=== PATIENT | female | born 1935 | race African-American/Black ===

== ENCOUNTER 2018-09-04 10:41 | Inpatient (IN) | payer MEDICARE, MEDICAID ==
[~2018-09-04] VITALS: Ht 162.6 cm; Wt 87.1 kg
[~2018-09-04 10:41] MED LIST: AMLO10TA80 PO; CLOT14.2 TP; D-ME1TAB32 PO; DIGO125T82 PO; GABA-531 PO; LEVO112T7 PO; [UNRECOGNIZED DRUG - CODE] PO
[2018-09-04] MEDS ORDERED: FAMOTIDINE 20MG/2ML VIAL IV STA (11:34)
[2018-09-04] MEDS ORDERED: MORPHINE SULFATE 4 MG/ML CPJ (NOT FOR IM USE) IV STA (11:34)
[2018-09-04 12:08] LABS: BASOPHILS % 0.3 % (0.0-2.0); EOSINOPHILS % 0.6 % (0.0-5.0); HEMATOCRIT. 43.6 % (36.0-48.0); HEMOGLOBIN. 14.3 g/dL (12.0-16.0); LYMPHOCYTES % 20.6 % (20.0-50.0); MEAN CORPUSCULAR HEMOGLOBIN 31.9 pg (28.0-32.0); MEAN PLATELET VOLUME 10.2 fl (7.4-10.4); MONOCYTES % 13.6 % (2.0-8.0); NEUTROPHILS % 64.9 % (40.0-76.0); PLATELET 203 x1000/uL (130-400); RED BLOOD CELL COUNT 4.49 mill/uL (4.2-5.4); RED CELL DISTRIBUTION WIDTH 14.5 % (11.6-14.6)
[2018-09-04 12:13] LABS: CHLORIDE 103 mEq/L (98-107)
[2018-09-04 12:16] LABS: INR 1.1; PROTHROMBIN TIME 10.8 sec (9.1-11.1)
[2018-09-04] MEDS ORDERED: LEVOFLOXACIN 750MG PREMIX 150 ML IV ONE (14:30)
[2018-09-04] MEDS ORDERED: DIPHENHYDRAMINE 50MG/ML VIAL IV PRN (15:30)
[2018-09-04] MEDS ORDERED: MAGNESIUM/ALUMINUM HYDROXIDE/SIMETHICONE 30ML UDC PO PRN (15:30)
[2018-09-04] MEDS ORDERED: ACETAMINOPHEN 325MG TABLET PO PRN (15:30)
[2018-09-04] MEDS ORDERED: ZOLPIDEM TARTRATE 5MG TABLET PO PRN (15:30)
[2018-09-04] MEDS ORDERED: LORAZEPAM 0.5MG TABLET PO PRN (15:30)
[2018-09-04] MEDS ORDERED: DOCUSATE SODIUM 100MG CAPSULE PO PRN (15:30)
[2018-09-04] MEDS ORDERED: GUAIFENESIN 200MG/10ML SUGAR FREE UDC PO PRN (15:30)
[2018-09-04] MEDS ORDERED: CLONIDINE 0.1MG TABLET PO PRN (15:30)
[2018-09-04] MEDS ORDERED: NITROGLYCERIN 0.4MG TABLET SL SL PRN (15:30)
[2018-09-04] MEDS ORDERED: IPRATROPIUM/ALBUTEROL 0.5-3(2.5)MG/3ML NEB INH PRN (15:30)
[2018-09-04 16:13] LABS: LDL CHOLESTEROL 100 mg/dL (5-100)
[2018-09-04 16:16] LABS: HDL CHOLESTEROL 55 mg/dL (40-59)
[2018-09-04 16:21] LABS: CLARITY URINE CLOUDY (CLEAR); COLOR URINE DARK YELLOW (YELLOW); KETONES URINE 1+ (NEGATIVE); LEUKOCYTE ESTERASE URINE 1+ (NEGATIVE); NITRITE URINE POSITIVE (NEGATIVE); OCCULT BLOOD URINE TRACE (NEGATIVE); PROTEIN URINE 1+ (NEGATIVE); SPECIFIC GRAVITY URINE 1.028 (1.005-1.030)
[2018-09-04 16:21] LABS: T4 FREE 1.45 ng/dL (0.76-1.46)
[2018-09-04 16:39] VITALS: BP 140/71
[2018-09-04 16:40] LABS: DIGOXIN < 0.1 ng/mL (0.9-2.0)
[2018-09-04] MEDS ORDERED: HYDROCODONE/ACETAMINOPHEN 5/325MG TABLET PO PRN (17:15)
[2018-09-04] MEDS ORDERED: MORPHINE SULFATE 4 MG/ML CPJ (NOT FOR IM USE) IV PRN (17:15)
[2018-09-04] MEDS ORDERED: TRAMADOL 50MG TABLET PO PRN (17:15)
[2018-09-04] MEDS: ONDANSETRON HCL 4MG/2ML INJ IV PRN (17:33)
[2018-09-04] MEDS ORDERED: APIX5TAB PO (17:50)
[2018-09-04 18:00] VITALS: BP 133/33
[2018-09-04] MEDS: FUROSEMIDE 40MG/4ML VIAL IVP SCH (18:01)
[2018-09-04] MEDS: DILTIAZEM HCL 60MG TABLET PO SCH (18:01)
[2018-09-04 18:21] VITALS: BP 140/71
[2018-09-04 20:00] VITALS: BP 97/57
[2018-09-04] MEDS ORDERED: CEFTRIAXONE 1 G PREMIX 50 ML IV SCH (20:00)
[2018-09-04] MEDS: GUAIFENESIN/DM 600MG/30MG ER TAB 12HR PO SCH (20:28)
[2018-09-04] MEDS ORDERED: NA PHOS,M-B/NA PHOS,DI-BA ENEMA 118ML PR PRN (21:00)
[2018-09-04] MEDS ORDERED: AZITHROMYCIN 500 MG in DEXT 5% WATER 250 ML IV SCH (21:00)
[2018-09-04] MEDS: FAMOTIDINE 20MG TABLET PO SCH (21:44)
[2018-09-04] MEDS: ASCORBIC ACID 500 MG TABLET PO SCH (21:44)
[2018-09-04] MEDS: ENOXAPARIN 30MG/0.3ML SYR SUBCUT SCH (21:45)
[2018-09-04 22:00] VITALS: BP 105/58
[2018-09-05] VITALS (17 sets, daily range): BP systolic 90–137; BP diastolic 45–71
[2018-09-05] MEDS: DILTIAZEM HCL 60MG TABLET PO SCH ×3 (00:06→06:43)
[2018-09-05 01:00] LABS: CREATINE KINASE 39 IU/L (26-192)
[2018-09-05 01:01] LABS: CREATINE KINASE MB FRACTION < 1.0 ng/mL (0.5-3.6)
[2018-09-05] MEDS: IPRATROPIUM BROMIDE (0.02%) 0.5MG/2.5ML NEB HHN SCH ×3 (05:15→21:46)
[2018-09-05] MEDS: LEVOTHYROXINE SODIUM 112MCG TABLET PO SCH (06:43)
[2018-09-05 08:33] LABS: BASOPHILS % 0.3 % (0.0-2.0); EOSINOPHILS % 0.4 % (0.0-5.0); HEMATOCRIT. 40.7 % (36.0-48.0); HEMOGLOBIN. 13.4 g/dL (12.0-16.0); LYMPHOCYTES % 18.4 % (20.0-50.0); MEAN CORPUSCULAR VOLUME 96.9 fL (81.0-99.0); MEAN PLATELET VOLUME 10.6 fl (7.4-10.4); MONOCYTES % 12.7 % (2.0-8.0); NEUTROPHILS % 68.2 % (40.0-76.0); PLATELET 200 x1000/uL (130-400); RED CELL DISTRIBUTION WIDTH 14.5 % (11.6-14.6)
[2018-09-05] MEDS: ONDANSETRON HCL 4MG/2ML INJ IV PRN (08:37)
[2018-09-05] MEDS: ENOXAPARIN 30MG/0.3ML SYR SUBCUT SCH (08:42)
[2018-09-05] MEDS: FUROSEMIDE 40MG/4ML VIAL IVP SCH (08:43)
[2018-09-05] MEDS: ASCORBIC ACID 500 MG TABLET PO SCH ×2 (08:45→21:31)
[2018-09-05] MEDS: ZINC SULFATE 220 MG ( 50 ) CAPSULE PO SCH (08:45)
[2018-09-05] MEDS: FAMOTIDINE 20MG TABLET PO SCH ×2 (08:45→21:31)
[2018-09-05] MEDS: POTASSIUM CHLORIDE 20MEQ TABLET SR PO SCH (08:45)
[2018-09-05 08:55] LABS: CHLORIDE 100 mEq/L (98-107)
[2018-09-05] MEDS ORDERED: ASPIRIN 325MG EC TABLET PO SCH (09:00)
[2018-09-05] MEDS: GUAIFENESIN/DM 600MG/30MG ER TAB 12HR PO SCH ×2 (09:00→20:10)
[2018-09-05 09:11] LABS: CREATINE KINASE 48 IU/L (26-192)
[2018-09-05 09:19] LABS: CREATINE KINASE MB FRACTION < 1.0 ng/mL (0.5-3.6)
[2018-09-05] MEDS: DILTIAZEM HCL 30MG TABLET PO SCH (17:30)
[2018-09-05] MEDS: CEFTRIAXONE 1 G PREMIX 50 ML IV SCH (20:09)
[2018-09-05] MEDS: AZITHROMYCIN 500 MG in DEXT 5% WATER 250 ML IV SCH (21:31)
[2018-09-06] VITALS (15 sets, daily range): BP systolic 97–132; BP diastolic 41–89
[2018-09-06] MEDS: IPRATROPIUM BROMIDE (0.02%) 0.5MG/2.5ML NEB HHN SCH ×4 (03:55→22:08)
[2018-09-06] MEDS: DILTIAZEM HCL 30MG TABLET PO SCH ×5 (06:31→21:06)
[2018-09-06 06:51] LABS: CHLORIDE 101 mEq/L (98-107)
[2018-09-06 06:58] LABS: BASOPHILS % 0.2 % (0.0-2.0); EOSINOPHILS % 1.5 % (0.0-5.0); HEMATOCRIT. 37.7 % (36.0-48.0); HEMOGLOBIN. 12.4 g/dL (12.0-16.0); LYMPHOCYTES % 21.1 % (20.0-50.0); MEAN CORPUSCULAR HEMOGLOBIN 31.6 pg (28.0-32.0); MEAN CORPUSCULAR VOLUME 96.4 fL (81.0-99.0); MEAN PLATELET VOLUME 10.2 fl (7.4-10.4); MONOCYTES % 14.8 % (2.0-8.0); NEUTROPHILS % 62.4 % (40.0-76.0); PLATELET 181 x1000/uL (130-400); RED BLOOD CELL COUNT 3.91 mill/uL (4.2-5.4); RED CELL DISTRIBUTION WIDTH 14.3 % (11.6-14.6)
[2018-09-06] MEDS: ZINC SULFATE 220 MG ( 50 ) CAPSULE PO SCH (09:11)
[2018-09-06] MEDS: ASCORBIC ACID 500 MG TABLET PO SCH ×2 (09:13→20:48)
[2018-09-06] MEDS: FAMOTIDINE 20MG TABLET PO SCH ×2 (09:13→20:48)
[2018-09-06] MEDS: GUAIFENESIN/DM 600MG/30MG ER TAB 12HR PO SCH ×2 (09:13→20:48)
[2018-09-06] MEDS: POTASSIUM CHLORIDE 20MEQ TABLET SR PO SCH (09:13)
[2018-09-06] MEDS: LEVOTHYROXINE SODIUM 112MCG TABLET PO SCH (09:13)
[2018-09-06] MEDS: FUROSEMIDE 40MG/4ML VIAL IVP SCH (09:24)
[2018-09-06 10:05] LABS: INR 1.1; PARTIAL THROMBOPLASTIN TIME 31.2 sec (23.4-31.0); PROTHROMBIN TIME 10.8 sec (9.1-11.1)
[2018-09-06] MEDS ORDERED: POTASSIUM CHLORIDE 20MEQ/PACKET PO NR (12:45)
[2018-09-06] MEDS: CEFTRIAXONE 1 G PREMIX 50 ML IV SCH (20:48)
[2018-09-06] MEDS: AZITHROMYCIN 500 MG in DEXT 5% WATER 250 ML IV SCH (21:57)
[2018-09-07] VITALS (10 sets, daily range): BP systolic 94–132; BP diastolic 57–86
[2018-09-07] MEDS: IPRATROPIUM BROMIDE (0.02%) 0.5MG/2.5ML NEB HHN SCH ×3 (01:07→13:03)
[2018-09-07] MEDS: DILTIAZEM HCL 30MG TABLET PO SCH (06:20)
[2018-09-07] MEDS: LEVOTHYROXINE SODIUM 112MCG TABLET PO SCH (06:20)
[2018-09-07 07:31] LABS: CHLORIDE 99 mEq/L (98-107)
[2018-09-07 07:32] LABS: BASOPHILS % 0.2 % (0.0-2.0); EOSINOPHILS % 1.2 % (0.0-5.0); HEMATOCRIT. 38.3 % (36.0-48.0); HEMOGLOBIN. 12.9 g/dL (12.0-16.0); LYMPHOCYTES % 24.6 % (20.0-50.0); MEAN CORPUSCULAR HEMOGLOBIN 32.4 pg (28.0-32.0); MEAN PLATELET VOLUME 10.1 fl (7.4-10.4); MONOCYTES % 12.6 % (2.0-8.0); NEUTROPHILS % 61.4 % (40.0-76.0); PLATELET 188 x1000/uL (130-400); RED BLOOD CELL COUNT 3.99 mill/uL (4.2-5.4); RED CELL DISTRIBUTION WIDTH 14.3 % (11.6-14.6)
[2018-09-07] MEDS: FUROSEMIDE 40MG/4ML VIAL IVP SCH (09:18)
[2018-09-07] MEDS: ZINC SULFATE 220 MG ( 50 ) CAPSULE PO SCH (09:19)
[2018-09-07] MEDS: FAMOTIDINE 20MG TABLET PO SCH (09:19)
[2018-09-07] MEDS: GUAIFENESIN/DM 600MG/30MG ER TAB 12HR PO SCH (09:19)
[2018-09-07] MEDS: POTASSIUM CHLORIDE 20MEQ TABLET SR PO SCH (09:19)
[2018-09-07] MEDS: ASCORBIC ACID 500 MG TABLET PO SCH (09:19)
[2018-09-14] MEDS ORDERED: ATOR10TA MT (03:03)
== END 2018-09-07 16:39 | disposition home or self-care (01) | DRG 871 ==
LOC: ER 13:37 → EDBEDREQ 14:09 → 3WST 14:59 → EDBEDREQ 15:06 → SUPCPDRO 15:24 → ENRESERV 16:04 → CANBEDREQ 16:15
PROVIDERS: ADMIT Internal Medicine; ATTEND Internal Medicine
PROC: 0W993ZZ Drainage of Right Pleural Cavity, Percutaneous Approach (ICD-10-PCS; principal; 2018-09-06)
DX: A41.9 Sepsis, unspecified organism (principal); J18.9 Pneumonia, unspecified organism; J96.00 Acute respiratory failure, unspecified whether with hypoxia or hypercapnia; E44.0 Moderate protein-calorie malnutrition; I13.0 Hypertensive heart and chronic kidney disease with heart failure and stage 1 through stage 4 chronic kidney disease, or unspecified chronic kidney disease; I48.1 Persistent atrial fibrillation; I50.30 Unspecified diastolic (congestive) heart failure; J98.11 Atelectasis; N39.0 Urinary tract infection, site not specified; E87.6 Hypokalemia; Z96.659 Presence of unspecified artificial knee joint; E11.42 Type 2 diabetes mellitus with diabetic polyneuropathy; I95.9 Hypotension, unspecified; K46.9 Unspecified abdominal hernia without obstruction or gangrene; R00.1 Bradycardia, unspecified; E03.9 Hypothyroidism, unspecified; E11.22 Type 2 diabetes mellitus with diabetic chronic kidney disease; E66.9 Obesity, unspecified; K57.90 Diverticulosis of intestine, part unspecified, without perforation or abscess without bleeding; N18.9 Chronic kidney disease, unspecified; Z79.01 Long term (current) use of anticoagulants; I25.2 Old myocardial infarction; Z87.11 Personal history of peptic ulcer disease; Z90.49 Acquired absence of other specified parts of digestive tract; Z91.14 Patient's other noncompliance with medication regimen; Z68.33 Body mass index [BMI] 33.0-33.9, adult; Z88.0 Allergy status to penicillin
CPT/HCPCS: 32555; 36415; 71045; 71250; 74176; 80048; 80061; 80162; 82040; 82550; 82553; 82962; 83036; 83605; 83615; 83735; 83880; 84439; 84443; 84484; 88108; 88312; 93005; 93306; 93970; 94640; 96374; 96375; 97162; 97166; 99285; J0456; J0696; J1650; J1940; J1956; J2270; J2405; J3490; J7050; J7060; J7620; A4315

== ENCOUNTER 2018-12-06 18:04 | Inpatient (IN) | payer MEDICARE, MEDICAID ==
[~2018-12-06] VITALS: Ht 162.6 cm; Wt 89.1 kg
[~2018-12-06 18:04] MED LIST changes: -AMLO10TA80 PO; +APIX5TAB PO; +ATOR10TA MT
[2018-12-06] MEDS ORDERED: SODIUM CHLORIDE 0.9% 1,000 ML IV ONE (18:22)
[2018-12-06 19:22] LABS: BASOPHILS % 0.5 % (0.0-2.0); HEMATOCRIT. 32.1 % (36.0-48.0); HEMOGLOBIN. 10.6 g/dL (12.0-16.0); LYMPHOCYTES % 26.3 % (20.0-50.0); MEAN CORPUSCULAR HEMOGLOBIN 30.3 pg (28.0-32.0); MEAN CORPUSCULAR VOLUME 91.8 fL (81.0-99.0); MEAN PLATELET VOLUME 10.7 fl (7.4-10.4); MONOCYTES % 10.3 % (2.0-8.0); NEUTROPHILS % 61.9 % (40.0-76.0); PLATELET 244 x1000/uL (130-400); RED CELL DISTRIBUTION WIDTH 16.7 % (11.6-14.6)
[2018-12-06 19:28] LABS: INR 1.6; PROTHROMBIN TIME 15.6 sec (9.1-11.1)
[2018-12-06 19:29] LABS: CHLORIDE 101 mEq/L (98-107)
[2018-12-06] MEDS ORDERED: MEROPENEM 1,000 MG in SODIUM CHLORIDE 0.9% 100 ML IV ONE (19:45)
[2018-12-06] MEDS ORDERED: VANCOMYCIN 1 G PREMIX 200 ML IV ONE (19:45)
[2018-12-06] MEDS ORDERED: SODIUM CHLORIDE 0.9% 1000ML BAG (SEPSIS BOLUS) IV ONE (19:45)
[2018-12-06 20:00] VITALS: BP 112/64
[2018-12-06] MEDS ORDERED: NITROGLYCERIN 0.4MG TABLET SL SL PRN (21:00)
[2018-12-06] MEDS ORDERED: ZOLPIDEM TARTRATE 5MG TABLET PO PRN (21:00)
[2018-12-06] MEDS ORDERED: APIXABAN 2.5 MG TABLET PO SCH (21:00)
[2018-12-06] MEDS ORDERED: DOCUSATE SODIUM 100MG CAPSULE PO PRN (21:15)
[2018-12-06] MEDS ORDERED: CLONIDINE 0.1MG TABLET PO PRN (21:15)
[2018-12-06] MEDS ORDERED: ONDANSETRON HCL 4MG/2ML INJ IV PRN (21:15)
[2018-12-06] MEDS ORDERED: MAGNESIUM/ALUMINUM HYDROXIDE/SIMETHICONE 30ML UDC PO PRN (21:15)
[2018-12-06] MEDS ORDERED: IPRATROPIUM/ALBUTEROL 0.5-3(2.5)MG/3ML NEB INH PRN (21:15)
[2018-12-06] MEDS ORDERED: GUAIFENESIN 200MG/10ML SUGAR FREE UDC PO PRN (21:15)
[2018-12-06 21:18] LABS: ETHANOL BLOOD < 10 mg/dL
[2018-12-06 21:21] LABS: LDL CHOLESTEROL 66 mg/dL (5-100)
[2018-12-06 21:22] LABS: HDL CHOLESTEROL 27 mg/dL (40-59)
[2018-12-06 21:26] LABS: T4 FREE 2.12 ng/dL (0.76-1.46)
[2018-12-06 21:36] LABS: DIGOXIN 0.1 ng/mL (0.9-2.0)
[2018-12-06 22:00] VITALS: BP 115/59
[2018-12-06 22:00] LABS: CREATINE KINASE MB FRACTION 1.7 ng/mL (0.5-3.6)
[2018-12-06 22:13] LABS: CLARITY URINE CLEAR (CLEAR); COLOR URINE YELLOW (YELLOW); KETONES URINE TRACE (NEGATIVE); LEUKOCYTE ESTERASE URINE NEGATIVE (NEGATIVE); NITRITE URINE NEGATIVE (NEGATIVE); OCCULT BLOOD URINE NEGATIVE (NEGATIVE); PH URINE 5.5 (4.5-8.0); PROTEIN URINE NEGATIVE (NEGATIVE); SPECIFIC GRAVITY URINE 1.015 (1.005-1.030)
[2018-12-07] VITALS (14 sets, daily range): BP systolic 75–110; BP diastolic 37–68
[2018-12-07] MEDS ORDERED: SODIUM CHLORIDE 0.9% 500 ML IV SCH
[2018-12-07] MEDS ORDERED: ALBUMIN HUMAN 25GM/100ML (25%) IV SCH
[2018-12-07] MEDS: TRAMADOL 50MG TABLET PO PRN (00:24)
[2018-12-07] MEDS ORDERED: SODIUM CHLORIDE 0.9% 1,000 ML IV ONE (03:38)
[2018-12-07 08:07] LABS: CREATINE KINASE MB FRACTION 1.9 ng/mL (0.5-3.6)
[2018-12-07] MEDS ORDERED: POTASSIUM CHLORIDE 20MEQ TABLET SR PO NR (10:00)
[2018-12-07] MEDS: ASPIRIN 325MG EC TABLET PO SCH (11:39)
[2018-12-07] MEDS: ASCORBIC ACID 500 MG TABLET PO SCH ×2 (11:39→21:12)
[2018-12-07] MEDS: APIXABAN 5 MG TABLET PO SCH ×2 (11:39→18:17)
[2018-12-07] MEDS: ZINC SULFATE 220 MG ( 50 ) CAPSULE PO SCH (11:39)
[2018-12-07] MEDS: FAMOTIDINE 20MG TABLET PO SCH (11:40)
[2018-12-07] MEDS ORDERED: LEVOFLOXACIN 500MG PREMIX 100 ML IV SCH (12:00)
[2018-12-07] MEDS: CEFTRIAXONE 1 G PREMIX 50 ML IV SCH (12:08)
[2018-12-07] MEDS: SODIUM CHLORIDE 0.9% 1,000 ML IV SCH (12:08)
[2018-12-07] MEDS: ALBUMIN HUMAN 25GM/100ML (25%) IV SCH ×2 (16:07→21:12)
[2018-12-07] MEDS: DIGOXIN 125MCG TABLET PO SCH (18:18)
[2018-12-07] MEDS: ATORVASTATIN CALCIUM 10MG TABLET PO SCH (21:12)
[2018-12-08] VITALS (14 sets, daily range): BP systolic 84–128; BP diastolic 43–67
[2018-12-08] MEDS: SODIUM CHLORIDE 0.9% 1,000 ML IV SCH ×2 (01:05→05:53)
[2018-12-08] MEDS: ALBUMIN HUMAN 25GM/100ML (25%) IV SCH (05:53)
[2018-12-08 08:26] LABS: BASOPHILS % 0.3 % (0.0-2.0); EOSINOPHILS % 0.9 % (0.0-5.0); HEMATOCRIT. 26.3 % (36.0-48.0); HEMOGLOBIN. 8.6 g/dL (12.0-16.0); LYMPHOCYTES % 23.3 % (20.0-50.0); MEAN CORPUSCULAR HEMOGLOBIN 30.2 pg (28.0-32.0); MEAN CORPUSCULAR VOLUME 92.1 fL (81.0-99.0); MEAN PLATELET VOLUME 10.8 fl (7.4-10.4); MONOCYTES % 14.9 % (2.0-8.0); NEUTROPHILS % 60.6 % (40.0-76.0); PLATELET 148 x1000/uL (130-400); RED BLOOD CELL COUNT 2.86 mill/uL (4.2-5.4); RED CELL DISTRIBUTION WIDTH 16.8 % (11.6-14.6)
[2018-12-08 08:28] LABS: CHLORIDE 108 mEq/L (98-107)
[2018-12-08 08:37] LABS: CREATINE KINASE MB FRACTION 1.7 ng/mL (0.5-3.6)
[2018-12-08 08:38] LABS: HDL CHOLESTEROL 20 mg/dL (40-59)
[2018-12-08 08:41] LABS: LDL CHOLESTEROL 40 mg/dL (5-100)
[2018-12-08 08:43] LABS: CREATINE KINASE 902 IU/L (26-192)
[2018-12-08 08:57] LABS: DIGOXIN 0.2 ng/mL (0.9-2.0)
[2018-12-08] MEDS: APIXABAN 5 MG TABLET PO SCH (09:00)
[2018-12-08] MEDS: ZINC SULFATE 220 MG ( 50 ) CAPSULE PO SCH (09:00)
[2018-12-08] MEDS: ASCORBIC ACID 500 MG TABLET PO SCH ×2 (09:00→21:53)
[2018-12-08] MEDS: FAMOTIDINE 20MG TABLET PO SCH (09:00)
[2018-12-08] MEDS: ASPIRIN 325MG EC TABLET PO SCH (09:00)
[2018-12-08 09:16] LABS: BG BASE EXCESS -5.5 mmol/L (-2.0-2.0); BG CARBOXYHEMOGLOBIN 0.2 % (0.5-1.5); BG DEOXYHEMOGLOBIN 6.1 % (0.0-5.0); BG FRACTION INSPIRED OXYGEN 44; BG HCO3 ACT 19.2 mmol/L (22.0-26.0); BG METHEMOGLOBIN 0.3 % (0.0-1.5); BG OXYGEN SATURATION 93.9 % (92.0-98.5); BG OXYHEMOGLOBIN 93.4 % (94.0-97.0); BG PCO2 34.1 mmHg (35.0-45.0); BG PH 7.369 (7.350-7.450); BG PO2 73.2 mmHg (75.0-100.0); BG SAMPLE SITE RIGHT BRACHIAL; BG TOTAL HEMOGLOBIN 8.5 g/dL (12.0-18.0); BG VENT MODE NASAL CANNULA
[2018-12-08] MEDS ORDERED: FUROSEMIDE 20MG/2ML VIAL IVP NR ×2 (09:45→13:00)
[2018-12-08] MEDS ORDERED: MAGNESIUM 4 G PREMIX 100 ML IV NR (10:30)
[2018-12-08] MEDS: ENOXAPARIN 80MG/0.8ML SYR SUBCUT SCH ×2 (11:32→21:53)
[2018-12-08] MEDS ORDERED: KCL 20MEQ/100ML PREMIX 100 ML IV NR (12:15)
[2018-12-08] MEDS: LEVOFLOXACIN 250MG PREMIX 50 ML IV SCH (13:18)
[2018-12-08] MEDS: CEFTRIAXONE 1 G PREMIX 50 ML IV SCH (14:27)
[2018-12-08] MEDS: IPRATROPIUM/ALBUTEROL 0.5-3(2.5)MG/3ML NEB HHN SCH ×2 (14:40→20:30)
[2018-12-08] MEDS: DIGOXIN 125MCG TABLET PO SCH (17:23)
[2018-12-08] MEDS: ATORVASTATIN CALCIUM 10MG TABLET PO SCH (21:53)
[2018-12-09] VITALS (13 sets, daily range): BP systolic 91–119; BP diastolic 49–64
[2018-12-09] MEDS: IPRATROPIUM/ALBUTEROL 0.5-3(2.5)MG/3ML NEB HHN SCH ×4 (00:20→21:18)
[2018-12-09] MEDS: TRAMADOL 50MG TABLET PO PRN ×3 (03:00→20:34)
[2018-12-09 06:51] LABS: CHLORIDE 105 mEq/L (98-107)
[2018-12-09 06:53] LABS: HEMATOCRIT. 25.9 % (36.0-48.0); HEMOGLOBIN. 8.6 g/dL (12.0-16.0); MEAN CORPUSCULAR HEMOGLOBIN 30.3 pg (28.0-32.0); MEAN CORPUSCULAR VOLUME 91.6 fL (81.0-99.0); PLATELET 156 x1000/uL (130-400); RED BLOOD CELL COUNT 2.83 mill/uL (4.2-5.4); RED CELL DISTRIBUTION WIDTH 16.7 % (11.6-14.6)
[2018-12-09] MEDS: FAMOTIDINE 20MG TABLET PO SCH (08:09)
[2018-12-09] MEDS: ASCORBIC ACID 500 MG TABLET PO SCH ×2 (08:09→20:34)
[2018-12-09] MEDS: ZINC SULFATE 220 MG ( 50 ) CAPSULE PO SCH (08:09)
[2018-12-09] MEDS: ENOXAPARIN 80MG/0.8ML SYR SUBCUT SCH ×2 (08:10→20:36)
[2018-12-09] MEDS ORDERED: POTASSIUM CHLORIDE 20MEQ TABLET SR PO SCH (12:00)
[2018-12-09] MEDS: LEVOFLOXACIN 250MG PREMIX 50 ML IV SCH (12:56)
[2018-12-09 14:30] LABS: PLATELET ESTIMATE NORMAL
[2018-12-09] MEDS: CEFTRIAXONE 1 G PREMIX 50 ML IV SCH (15:24)
[2018-12-09] MEDS: DIGOXIN 125MCG TABLET PO SCH (17:02)
[2018-12-09] MEDS: ACETAMINOPHEN 325MG TABLET PO PRN (17:02)
[2018-12-09] MEDS: ATORVASTATIN CALCIUM 10MG TABLET PO SCH (20:34)
[2018-12-10] VITALS (14 sets, daily range): BP systolic 91–106; BP diastolic 42–65
[2018-12-10] MEDS: IPRATROPIUM/ALBUTEROL 0.5-3(2.5)MG/3ML NEB HHN SCH ×4 (02:31→20:35)
[2018-12-10] MEDS: ZINC SULFATE 220 MG ( 50 ) CAPSULE PO SCH (08:45)
[2018-12-10] MEDS: ASCORBIC ACID 500 MG TABLET PO SCH ×2 (08:45→20:53)
[2018-12-10] MEDS: ENOXAPARIN 80MG/0.8ML SYR SUBCUT SCH (08:45)
[2018-12-10] MEDS: FAMOTIDINE 20MG TABLET PO SCH (08:45)
[2018-12-10] MEDS: TRAMADOL 50MG TABLET PO PRN (08:47)
[2018-12-10] MEDS: LEVOFLOXACIN 250MG PREMIX 50 ML IV SCH (12:03)
[2018-12-10] MEDS: CEFTRIAXONE 1 G PREMIX 50 ML IV SCH (14:39)
[2018-12-10] MEDS: ACETAMINOPHEN 325MG TABLET PO PRN (15:29)
[2018-12-10 16:52] LABS: INR 1.4
[2018-12-10] MEDS: DIGOXIN 125MCG TABLET PO SCH (17:34)
[2018-12-10] MEDS: ATORVASTATIN CALCIUM 10MG TABLET PO SCH (20:53)
[2018-12-11] VITALS (11 sets, daily range): BP systolic 93–124; BP diastolic 40–64
[2018-12-11] MEDS: IPRATROPIUM/ALBUTEROL 0.5-3(2.5)MG/3ML NEB HHN SCH ×4 (02:14→20:24)
[2018-12-11] MEDS: FAMOTIDINE 20MG TABLET PO SCH (09:49)
[2018-12-11] MEDS: ZINC SULFATE 220 MG ( 50 ) CAPSULE PO SCH (09:49)
[2018-12-11] MEDS: ASCORBIC ACID 500 MG TABLET PO SCH ×2 (09:49→21:24)
[2018-12-11] MEDS ORDERED: SODIUM BICARBONATE 4% (2.4MEQ) 5ML VIAL IV ONE (09:55)
[2018-12-11] MEDS: LEVOFLOXACIN 250MG TABLET PO SCH (11:56)
[2018-12-11] MEDS: SUCRALFATE 1 G/10 ML UDC PO SCH ×3 (13:37→21:24)
[2018-12-11] MEDS: CEFTRIAXONE 1 G PREMIX 50 ML IV SCH (14:28)
[2018-12-11] MEDS: ACETAMINOPHEN 325MG TABLET PO PRN (14:28)
[2018-12-11] MEDS ORDERED: MAGNESIUM/ALUMINUM HYDROXIDE/SIMETHICONE 30ML UDC PO PRN (14:45)
[2018-12-11] MEDS ORDERED: MAGNESIUM/ALUMINUM HYDROXIDE/SIMETHICONE 30ML UDC PO NR (15:00)
[2018-12-11] MEDS: DIGOXIN 125MCG TABLET PO SCH (17:35)
[2018-12-11] MEDS: ATORVASTATIN CALCIUM 10MG TABLET PO SCH (21:24)
[2018-12-12] VITALS (12 sets, daily range): BP systolic 92–124; BP diastolic 47–71
[2018-12-12] MEDS: IPRATROPIUM/ALBUTEROL 0.5-3(2.5)MG/3ML NEB HHN SCH ×4 (01:59→21:09)
[2018-12-12] MEDS: SUCRALFATE 1 G/10 ML UDC PO SCH ×4 (05:48→21:02)
[2018-12-12 06:39] LABS: CHLORIDE 107 mEq/L (98-107)
[2018-12-12 06:48] LABS: BASOPHILS % 0.3 % (0.0-2.0); EOSINOPHILS % 0.7 % (0.0-5.0); HEMATOCRIT. 27.2 % (36.0-48.0); HEMOGLOBIN. 9.1 g/dL (12.0-16.0); LYMPHOCYTES % 17.3 % (20.0-50.0); MEAN CORPUSCULAR HEMOGLOBIN 30.4 pg (28.0-32.0); MEAN PLATELET VOLUME 10.7 fl (7.4-10.4); MONOCYTES % 10.7 % (2.0-8.0); PLATELET 145 x1000/uL (130-400); RED BLOOD CELL COUNT 2.98 mill/uL (4.2-5.4); RED CELL DISTRIBUTION WIDTH 16.7 % (11.6-14.6)
[2018-12-12] MEDS: ASCORBIC ACID 500 MG TABLET PO SCH ×2 (08:40→21:02)
[2018-12-12] MEDS: FAMOTIDINE 20MG TABLET PO SCH (08:40)
[2018-12-12] MEDS: ZINC SULFATE 220 MG ( 50 ) CAPSULE PO SCH (08:40)
[2018-12-12] MEDS ORDERED: POTASSIUM CHLORIDE 20MEQ TABLET SR PO NR (10:00)
[2018-12-12] MEDS: LEVOFLOXACIN 250MG TABLET PO SCH (10:45)
[2018-12-12] MEDS: GUAIFENESIN 600MG ER TABLET PO SCH ×2 (11:20→21:02)
[2018-12-12] MEDS: DIGOXIN 125MCG TABLET PO SCH (17:41)
[2018-12-12] MEDS: APIXABAN 5 MG TABLET PO SCH (17:41)
[2018-12-12] MEDS: CEFTRIAXONE 1 G PREMIX 50 ML IV SCH (17:41)
[2018-12-12] MEDS: ATORVASTATIN CALCIUM 10MG TABLET PO SCH (21:02)
[2018-12-13] VITALS (11 sets, daily range): BP systolic 92–117; BP diastolic 51–64
[2018-12-13] MEDS: IPRATROPIUM/ALBUTEROL 0.5-3(2.5)MG/3ML NEB HHN SCH ×4 (02:36→20:44)
[2018-12-13] MEDS: SUCRALFATE 1 G/10 ML UDC PO SCH ×4 (05:36→21:34)
[2018-12-13] MEDS: ACETAMINOPHEN 325MG TABLET PO PRN (05:37)
[2018-12-13 06:44] LABS: BASOPHILS % 0.5 % (0.0-2.0); HEMATOCRIT. 29.2 % (36.0-48.0); HEMOGLOBIN. 9.5 g/dL (12.0-16.0); LYMPHOCYTES % 21.6 % (20.0-50.0); MEAN CORPUSCULAR HEMOGLOBIN 30.1 pg (28.0-32.0); MEAN CORPUSCULAR VOLUME 92.2 fL (81.0-99.0); MEAN PLATELET VOLUME 10.6 fl (7.4-10.4); MONOCYTES % 11.7 % (2.0-8.0); NEUTROPHILS % 65.2 % (40.0-76.0); PLATELET 164 x1000/uL (130-400); RED BLOOD CELL COUNT 3.16 mill/uL (4.2-5.4); RED CELL DISTRIBUTION WIDTH 16.8 % (11.6-14.6)
[2018-12-13 07:14] LABS: CHLORIDE 109 mEq/L (98-107)
[2018-12-13] MEDS: APIXABAN 5 MG TABLET PO SCH ×2 (08:04→17:44)
[2018-12-13] MEDS: ZINC SULFATE 220 MG ( 50 ) CAPSULE PO SCH (08:04)
[2018-12-13] MEDS: GUAIFENESIN 600MG ER TABLET PO SCH ×2 (08:04→21:34)
[2018-12-13] MEDS: FAMOTIDINE 20MG TABLET PO SCH (08:04)
[2018-12-13] MEDS: ASCORBIC ACID 500 MG TABLET PO SCH ×2 (08:04→21:34)
[2018-12-13] MEDS: LEVOFLOXACIN 250MG TABLET PO SCH (13:54)
[2018-12-13] MEDS: CEFTRIAXONE 1 G PREMIX 50 ML IV SCH (13:54)
[2018-12-13] MEDS: DIGOXIN 125MCG TABLET PO SCH (17:44)
[2018-12-13] MEDS: ATORVASTATIN CALCIUM 10MG TABLET PO SCH (21:34)
[2018-12-14] VITALS (9 sets, daily range): BP systolic 91–114; BP diastolic 40–69
[2018-12-14] MEDS: IPRATROPIUM/ALBUTEROL 0.5-3(2.5)MG/3ML NEB HHN SCH ×3 (02:24→12:55)
[2018-12-14] MEDS: SUCRALFATE 1 G/10 ML UDC PO SCH ×2 (06:18→11:32)
[2018-12-14] MEDS: ZINC SULFATE 220 MG ( 50 ) CAPSULE PO SCH (08:34)
[2018-12-14] MEDS: GUAIFENESIN 600MG ER TABLET PO SCH (08:34)
[2018-12-14] MEDS: ASCORBIC ACID 500 MG TABLET PO SCH (08:34)
[2018-12-14] MEDS: FAMOTIDINE 20MG TABLET PO SCH (08:34)
[2018-12-14] MEDS: APIXABAN 5 MG TABLET PO SCH (08:34)
[2018-12-14] MEDS: ACETAMINOPHEN 325MG TABLET PO PRN (11:32)
[2018-12-14] MEDS: LEVOFLOXACIN 250MG TABLET PO SCH (11:32)
[2018-12-14] MEDS: CEFTRIAXONE 1 G PREMIX 50 ML IV SCH (14:30)
[2018-12-14] MEDS ORDERED: NYSTATIN 100,000 UNITS/GM CREAM 15GM TOP SCH (21:00)
[2018-12-14] MEDS ORDERED: MICONAZOLE NITRATE 2% OINT 71GM TOP SCH (21:00)
== END 2018-12-14 16:50 | DRG 871 ==
LOC: ER 19:51 → 3WST 19:59 → EDBEDREQ 20:03 → EDBEDREQTM 20:03 → ENRESERV 12-07 07:19
PROVIDERS: ADMIT Internal Medicine; ATTEND Internal Medicine
PROC: 5A09357 Assistance with Respiratory Ventilation, Less than 24 Consecutive Hours, Continuous Positive Airway Pressure (ICD-10-PCS; 2018-12-08)
PROC: 5A09357 Assistance with Respiratory Ventilation, Less than 24 Consecutive Hours, Continuous Positive Airway Pressure (ICD-10-PCS; 2018-12-09)
PROC: 0W993ZZ Drainage of Right Pleural Cavity, Percutaneous Approach (ICD-10-PCS; principal; 2018-12-11)
DX: A41.9 Sepsis, unspecified organism (principal); G92 Toxic encephalopathy; E43 Unspecified severe protein-calorie malnutrition; J96.00 Acute respiratory failure, unspecified whether with hypoxia or hypercapnia; I50.33 Acute on chronic diastolic (congestive) heart failure; J18.9 Pneumonia, unspecified organism; E87.2 Acidosis; I13.0 Hypertensive heart and chronic kidney disease with heart failure and stage 1 through stage 4 chronic kidney disease, or unspecified chronic kidney disease; I82.531 Chronic embolism and thrombosis of right popliteal vein; J98.11 Atelectasis; M62.82 Rhabdomyolysis; D68.59 Other primary thrombophilia; J91.8 Pleural effusion in other conditions classified elsewhere; E03.9 Hypothyroidism, unspecified; D64.9 Anemia, unspecified; E87.6 Hypokalemia; I48.2 Chronic atrial fibrillation; I95.9 Hypotension, unspecified; G90.8 Other disorders of autonomic nervous system; E11.22 Type 2 diabetes mellitus with diabetic chronic kidney disease; E11.43 Type 2 diabetes mellitus with diabetic autonomic (poly)neuropathy; E11.42 Type 2 diabetes mellitus with diabetic polyneuropathy; E66.9 Obesity, unspecified; E78.00 Pure hypercholesterolemia, unspecified; E83.42 Hypomagnesemia; N18.9 Chronic kidney disease, unspecified; K31.84 Gastroparesis; Z96.659 Presence of unspecified artificial knee joint; Z82.49 Family history of ischemic heart disease and other diseases of the circulatory system; Z83.3 Family history of diabetes mellitus; Z87.01 Personal history of pneumonia (recurrent); Z87.11 Personal history of peptic ulcer disease; Z91.81 History of falling; Z68.33 Body mass index [BMI] 33.0-33.9, adult; Z79.01 Long term (current) use of anticoagulants; Z88.0 Allergy status to penicillin; Z90.49 Acquired absence of other specified parts of digestive tract; Z79.899 Other long term (current) drug therapy
CPT/HCPCS: 32555; 36415; 36600; 71045; 80048; 80061; 80162; 82375; 82550; 82553; 82805; 83036; 83605; 83615; 83735; 83880; 84145; 84439; 84443; 84484; 85379; 88108; 88312; 92523; 92610; 93005; 93970; 94640; 94660; 96365; 97162; 97166; 97530; 97535; 99291; G0482; J0696; J1650; J1940; J1956; J2185; J3370; J3475; J3480; J3490; J7030; J7050; J7620; P9047; A4315

== ENCOUNTER 2019-02-02 17:00 | Inpatient (IN) | payer MEDICARE, MEDICAID ==
[~2019-02-02] VITALS: Ht 167.6 cm; Wt 89.8 kg
[2019-02-02] MEDS ORDERED: MORPHINE SULFATE 4 MG/ML CPJ (NOT FOR IM USE) IV STA (18:04)
[2019-02-02] MEDS ORDERED: ONDANSETRON HCL 4MG/2ML INJ IV STA (18:04)
[2019-02-02] MEDS ORDERED: SODIUM CHLORIDE 0.9% 1,000 ML IV ONE (18:04)
[2019-02-02 18:38] LABS: CHLORIDE 107 mEq/L (98-107)
[2019-02-02 18:40] LABS: BASOPHILS % 0.3 % (0.0-2.0); EOSINOPHILS % 0.9 % (0.0-5.0); HEMOGLOBIN. 9.3 g/dL (12.0-16.0); LYMPHOCYTES % 58.2 % (20.0-50.0); MEAN CORPUSCULAR HEMOGLOBIN 26.9 pg (28.0-32.0); MEAN CORPUSCULAR VOLUME 86.4 fL (81.0-99.0); MEAN PLATELET VOLUME 9.7 fl (7.4-10.4); MONOCYTES % 12.9 % (2.0-8.0); NEUTROPHILS % 27.7 % (40.0-76.0); PLATELET 155 x1000/uL (130-400); RED BLOOD CELL COUNT 3.47 mill/uL (4.2-5.4); RED CELL DISTRIBUTION WIDTH 18.2 % (11.6-14.6)
[2019-02-02 19:49] LABS: INR 1.4; PROTHROMBIN TIME 13.6 sec (9.1-11.1)
[2019-02-02] MEDS ORDERED: ACETAMINOPHEN 325MG TABLET PO PRN (22:00)
[2019-02-02] MEDS ORDERED: NA PHOS,M-B/NA PHOS,DI-BA ENEMA 118ML PR PRN (22:00)
[2019-02-02] MEDS ORDERED: ZOLPIDEM TARTRATE 5MG TABLET PO PRN (22:00)
[2019-02-02] MEDS ORDERED: ONDANSETRON HCL 4MG/2ML INJ IV PRN (22:00)
[2019-02-02] MEDS ORDERED: IPRATROPIUM/ALBUTEROL 0.5-3(2.5)MG/3ML NEB INH PRN (22:00)
[2019-02-02] MEDS ORDERED: DOCUSATE SODIUM 100MG CAPSULE PO PRN (22:00)
[2019-02-02] MEDS ORDERED: GUAIFENESIN 200MG/10ML SUGAR FREE UDC PO PRN (22:00)
[2019-02-02] MEDS ORDERED: NITROGLYCERIN 0.4MG TABLET SL SL PRN (22:00)
[2019-02-02] MEDS ORDERED: CLONIDINE 0.1MG TABLET PO PRN (22:00)
[2019-02-02] MEDS ORDERED: MAGNESIUM/ALUMINUM HYDROXIDE/SIMETHICONE 30ML UDC PO PRN (22:00)
[2019-02-02] MEDS ORDERED: TRAMADOL 50MG TABLET PO PRN (22:00)
[2019-02-02] MEDS ORDERED: PIPERACILLIN/TAZ 3.375G PREMIX 50 ML IV NR (22:45)
[2019-02-02] MEDS ORDERED: LACTULOSE 20G/30ML UDC PO NR (22:45)
[2019-02-02] MEDS ORDERED: SODIUM POLYSTYRENE SULFONATE 15 G/60 ML BOT PO NR (23:00)
[2019-02-03] MEDS ORDERED: DEXTROSE 50% WATER 50ML SYRINGE IV ONE (01:30)
[2019-02-03 02:05] VITALS: BP 112/63
[2019-02-03] MEDS ORDERED: ZOLPIDEM TARTRATE 5MG TABLET PO PRN (02:30)
[2019-02-03] MEDS ORDERED: ASCO500C6 PO (04:29)
[2019-02-03] MEDS ORDERED: NA P230E RC (04:29)
[2019-02-03] MEDS ORDERED: SUCR1TAB PO (04:29)
[2019-02-03] MEDS ORDERED: DEXTL PO (04:29)
[2019-02-03] MEDS ORDERED: NITR0.4T SL (04:29)
[2019-02-03] MEDS ORDERED: ONDA4TAB5 PO (04:29)
[2019-02-03] MEDS ORDERED: ESCI10TA PO (04:29)
[2019-02-03] MEDS ORDERED: ACET160S2 PO (04:29)
[2019-02-03] MEDS ORDERED: MULT-230 PO (04:29)
[2019-02-03] MEDS ORDERED: DOCU-138 PO (04:29)
[2019-02-03] MEDS ORDERED: OR220 PO (04:29)
[2019-02-03] MEDS ORDERED: BISA10SU62 RC (04:29)
[2019-02-03] MEDS ORDERED: IPRA3AMP9 HHN (04:29)
[2019-02-03] MEDS ORDERED: FAMO20TA8 PO (04:29)
[2019-02-03] MEDS ORDERED: MYL30 PO (04:29)
[2019-02-03] MEDS ORDERED: DICL100G16 TP (04:29)
[2019-02-03] MEDS ORDERED: CLON0.1T14 PO (04:29)
[2019-02-03] MEDS ORDERED: MAGN800O PO (04:29)
[2019-02-03] MEDS: LACTULOSE 20G/30ML UDC PO SCH ×3 (05:59→22:00)
[2019-02-03] MEDS ORDERED: PIPERACILLIN/TAZ 3.375G PREMIX 50 ML IV SCH ×2 (06:00)
[2019-02-03] MEDS ORDERED: LACTULOSE 20G/30ML UDC PO SCH (06:00)
[2019-02-03] MEDS: SUCRALFATE 1 G/10 ML UDC PO SCH ×4 (06:25→21:00)
[2019-02-03] MEDS: LEVOTHYROXINE SODIUM 137MCG TABLET PO SCH (06:25)
[2019-02-03] MEDS: PIPERACILLIN/TAZ 2.25G PREMIX 50 ML IV SCH ×4 (06:26→23:28)
[2019-02-03] MEDS ORDERED: LEVOTHYROXINE SODIUM 112MCG TABLET PO SCH ×2 (07:50)
[2019-02-03 08:00] VITALS: BP 108/51
[2019-02-03] MEDS ORDERED: ASCORBIC ACID 500 MG TABLET PO SCH (09:00)
[2019-02-03] MEDS ORDERED: APIXABAN 5 MG TABLET PO SCH ×2 (09:00)
[2019-02-03] MEDS ORDERED: FAMOTIDINE 20MG TABLET PO SCH (09:00)
[2019-02-03] MEDS ORDERED: SUCRALFATE 1 G/10 ML UDC PO SCH (09:00)
[2019-02-03] MEDS ORDERED: ZINC SULFATE 220 MG ( 50 ) CAPSULE PO SCH (09:00)
[2019-02-03] MEDS: FAMOTIDINE 20MG TABLET PO SCH (09:31)
[2019-02-03] MEDS: ASCORBIC ACID 500 MG TABLET PO SCH ×2 (09:31→21:00)
[2019-02-03] MEDS: ZINC SULFATE 220 MG ( 50 ) CAPSULE PO SCH (09:31)
[2019-02-03 12:00] VITALS: BP 154/66
[2019-02-03] MEDS: BLOOD SUGAR DIAGNOSTIC STRIP TEST SCH ×3 (12:38→21:00)
[2019-02-03] MEDS: INSULIN LISPRO 100 UNITS/ML SUBCUT SCH ×3 (12:38→21:00)
[2019-02-03 16:00] VITALS: BP 92/55
[2019-02-03 16:22] LABS: BASOPHILS % 0.2 % (0.0-2.0); EOSINOPHILS % 1.3 % (0.0-5.0); HEMATOCRIT. 30.9 % (36.0-48.0); HEMOGLOBIN. 9.8 g/dL (12.0-16.0); LYMPHOCYTES % 35.2 % (20.0-50.0); MEAN CORPUSCULAR HEMOGLOBIN 27.5 pg (28.0-32.0); MEAN CORPUSCULAR VOLUME 86.9 fL (81.0-99.0); MEAN PLATELET VOLUME 9.5 fl (7.4-10.4); MONOCYTES % 14.4 % (2.0-8.0); NEUTROPHILS % 48.9 % (40.0-76.0); PLATELET 138 x1000/uL (130-400); RED BLOOD CELL COUNT 3.56 mill/uL (4.2-5.4); RED CELL DISTRIBUTION WIDTH 17.8 % (11.6-14.6)
[2019-02-03 16:28] LABS: CHLORIDE 111 mEq/L (98-107)
[2019-02-03 16:30] VITALS: BP 113/42
[2019-02-03] MEDS: DEXTROSE 50% WATER 50ML SYRINGE IV PRN (17:18)
[2019-02-03] MEDS: APIXABAN 2.5 MG TABLET PO SCH (17:25)
[2019-02-03] MEDS: DIGOXIN 125MCG TABLET PO SCH (17:25)
[2019-02-03] MEDS ORDERED: DIGOXIN 125MCG TABLET PO SCH (18:00)
[2019-02-03 20:42] VITALS: BP 99/48
[2019-02-04] VITALS: BP 90/46
[2019-02-04 04:00] VITALS: BP 95/47
[2019-02-04] MEDS: PIPERACILLIN/TAZ 2.25G PREMIX 50 ML IV SCH ×4 (05:28→22:45)
[2019-02-04] MEDS: LACTULOSE 20G/30ML UDC PO SCH ×3 (05:29→20:48)
[2019-02-04] MEDS: BLOOD SUGAR DIAGNOSTIC STRIP TEST SCH ×4 (06:22→20:49)
[2019-02-04] MEDS: LEVOTHYROXINE SODIUM 137MCG TABLET PO SCH (06:22)
[2019-02-04] MEDS: SUCRALFATE 1 G/10 ML UDC PO SCH ×4 (06:22→20:49)
[2019-02-04] MEDS: INSULIN LISPRO 100 UNITS/ML SUBCUT SCH ×4 (07:44→20:49)
[2019-02-04 08:00] VITALS: BP 102/41
[2019-02-04] MEDS: ZINC SULFATE 220 MG ( 50 ) CAPSULE PO SCH (09:00)
[2019-02-04] MEDS: FAMOTIDINE 20MG TABLET PO SCH (09:00)
[2019-02-04] MEDS: APIXABAN 2.5 MG TABLET PO SCH ×2 (09:00→17:21)
[2019-02-04] MEDS: ASCORBIC ACID 500 MG TABLET PO SCH ×2 (09:00→20:49)
[2019-02-04] MEDS: ONDANSETRON HCL 4MG/2ML INJ IV PRN ×3 (09:12→17:20)
[2019-02-04] MEDS: DEXT 5%/0.45% NACL 1000ML 1,000 ML IV SCH ×2 (11:39→22:46)
[2019-02-04 12:00] VITALS: BP 90/51
[2019-02-04 16:00] VITALS: BP_SYST 121; BP_SYST 84; BP_DIAS 102; BP_DIAS 49
[2019-02-04] MEDS: DIGOXIN 125MCG TABLET PO SCH (17:21)
[2019-02-04 20:00] VITALS: BP 107/56
[2019-02-05] VITALS: BP 99/49
[2019-02-05 04:00] VITALS: BP 121/62
[2019-02-05] MEDS: ONDANSETRON HCL 4MG/2ML INJ IV PRN ×3 (05:28→23:51)
[2019-02-05] MEDS: LACTULOSE 20G/30ML UDC PO SCH ×4 (05:28→21:31)
[2019-02-05] MEDS: PIPERACILLIN/TAZ 2.25G PREMIX 50 ML IV SCH ×4 (05:29→23:51)
[2019-02-05] MEDS: DEXTROSE 50% WATER 50ML SYRINGE IV PRN ×2 (06:42→21:30)
[2019-02-05 07:44] VITALS: BP 88/52
[2019-02-05] MEDS: BLOOD SUGAR DIAGNOSTIC STRIP TEST SCH ×4 (07:48→21:31)
[2019-02-05] MEDS: INSULIN LISPRO 100 UNITS/ML SUBCUT SCH ×4 (07:49→21:00)
[2019-02-05] MEDS: LEVOTHYROXINE SODIUM 137MCG TABLET PO SCH (08:27)
[2019-02-05] MEDS: SUCRALFATE 1 G/10 ML UDC PO SCH ×4 (08:27→21:30)
[2019-02-05] MEDS: ZINC SULFATE 220 MG ( 50 ) CAPSULE PO SCH (08:28)
[2019-02-05] MEDS: FAMOTIDINE 20MG TABLET PO SCH (08:28)
[2019-02-05] MEDS: APIXABAN 2.5 MG TABLET PO SCH ×3 (08:28→18:19)
[2019-02-05] MEDS: ASCORBIC ACID 500 MG TABLET PO SCH ×3 (08:28→21:30)
[2019-02-05 12:57] VITALS: BP 88/44
[2019-02-05] MEDS: DEXT 5%/0.45% NACL 1000ML 1,000 ML IV SCH (15:17)
[2019-02-05 16:57] VITALS: BP 96/46
[2019-02-05] MEDS: DIGOXIN 125MCG TABLET PO SCH (18:19)
[2019-02-05 20:00] VITALS: BP 108/50
[2019-02-06] VITALS: BP 84/51
[2019-02-06] MEDS: DEXT 5%/0.45% NACL 1000ML 1,000 ML IV SCH ×2 (03:44→05:37)
[2019-02-06 04:00] VITALS: BP 107/48
[2019-02-06] MEDS: ONDANSETRON HCL 4MG/2ML INJ IV PRN (04:25)
[2019-02-06] MEDS: DEXTROSE 50% WATER 50ML SYRINGE IV PRN (04:25)
[2019-02-06] MEDS: PIPERACILLIN/TAZ 2.25G PREMIX 50 ML IV SCH ×3 (05:37→18:12)
[2019-02-06] MEDS: LACTULOSE 20G/30ML UDC PO SCH ×4 (05:37→22:00)
[2019-02-06] MEDS: LEVOTHYROXINE SODIUM 137MCG TABLET PO SCH ×2 (07:20→11:07)
[2019-02-06] MEDS: BLOOD SUGAR DIAGNOSTIC STRIP TEST SCH ×4 (07:26→21:00)
[2019-02-06] MEDS: INSULIN LISPRO 100 UNITS/ML SUBCUT SCH ×4 (07:26→21:00)
[2019-02-06 08:00] VITALS: BP 95/45
[2019-02-06] MEDS: SUCRALFATE 1 G/10 ML UDC PO SCH ×5 (08:09→21:00)
[2019-02-06] MEDS: FAMOTIDINE 20MG TABLET PO SCH (08:17)
[2019-02-06] MEDS: ZINC SULFATE 220 MG ( 50 ) CAPSULE PO SCH (08:17)
[2019-02-06] MEDS: APIXABAN 2.5 MG TABLET PO SCH (08:17)
[2019-02-06] MEDS: ASCORBIC ACID 500 MG TABLET PO SCH ×3 (08:17→21:00)
[2019-02-06 12:00] VITALS: BP 91/36
[2019-02-06 16:00] VITALS: BP 116/44
[2019-02-06 17:51] LABS: TOTAL IRON BINDING CAPACITY 311 ug/dL (250-450)
[2019-02-06] MEDS: DIGOXIN 125MCG TABLET PO SCH (17:52)
[2019-02-06 20:00] VITALS: BP 101/44
[2019-02-07] VITALS (7 sets, daily range): BP systolic 75–152; BP diastolic 36–99
[2019-02-07] MEDS: PIPERACILLIN/TAZ 2.25G PREMIX 50 ML IV SCH ×3 (00:51→17:51)
[2019-02-07] MEDS: DEXT 5%/0.45% NACL 1000ML 1,000 ML IV SCH ×2 (00:51→17:51)
[2019-02-07] MEDS: SUCRALFATE 1 G/10 ML UDC PO SCH ×4 (06:00→21:26)
[2019-02-07] MEDS: LACTULOSE 20G/30ML UDC PO SCH ×3 (06:00→21:26)
[2019-02-07] MEDS: LEVOTHYROXINE SODIUM 137MCG TABLET PO SCH (06:01)
[2019-02-07] MEDS: BLOOD SUGAR DIAGNOSTIC STRIP TEST SCH ×4 (06:09→21:00)
[2019-02-07] MEDS: INSULIN LISPRO 100 UNITS/ML SUBCUT SCH ×4 (06:09→21:00)
[2019-02-07 07:00] LABS: INR 1.5; PROTHROMBIN TIME 14.7 sec (9.1-11.1)
[2019-02-07 07:03] LABS: HEMATOCRIT. 26.9 % (36.0-48.0); HEMOGLOBIN. 8.6 g/dL (12.0-16.0); MEAN CORPUSCULAR HEMOGLOBIN 27.5 pg (28.0-32.0); MEAN CORPUSCULAR VOLUME 86.3 fL (81.0-99.0); MEAN PLATELET VOLUME 9.6 fl (7.4-10.4); PLATELET 92 x1000/uL (130-400); RED BLOOD CELL COUNT 3.12 mill/uL (4.2-5.4); RED CELL DISTRIBUTION WIDTH 18.1 % (11.6-14.6)
[2019-02-07] MEDS: FAMOTIDINE 20MG TABLET PO SCH (09:00)
[2019-02-07] MEDS: ASCORBIC ACID 500 MG TABLET PO SCH ×2 (09:00→21:26)
[2019-02-07] MEDS: ZINC SULFATE 220 MG ( 50 ) CAPSULE PO SCH (09:00)
[2019-02-07] MEDS ORDERED: BACTERIOSTATIC SODIUM CHLORIDE 0.9% 30ML VIAL IJ ONE (10:09)
[2019-02-07] MEDS ORDERED: SIMETHICONE 40 MG/0.6 ML 30ML ONE (10:09)
[2019-02-07] MEDS ORDERED: POTASSIUM CHLORIDE INJ 40 MEQ in DEXT 5% WATER 250 ML IV ONE (11:30)
[2019-02-07 11:35] LABS: PLATELET ESTIMATE DECREASED
[2019-02-07] MEDS ORDERED: MIDAZOLAM HCL 2 MG/2 ML VIAL IV PRN (11:56)
[2019-02-07] MEDS ORDERED: FENTANYL CITRATE/PF 50MCG/ML 2ML VIAL IV PRN (11:57)
[2019-02-07] MEDS ORDERED: MIDAZOLAM HCL 5 MG/5 ML VIAL ONE (12:01)
[2019-02-07] MEDS ORDERED: FENTANYL CITRATE/PF 50MCG/ML 2ML VIAL ONE (12:01)
[2019-02-07] MEDS ORDERED: AMLO10TA4 MT (14:26)
[2019-02-07] MEDS ORDERED: METO25TA6 MT (14:31)
[2019-02-07] MEDS: DIGOXIN 125MCG TABLET PO SCH (17:51)
[2019-02-08] VITALS: BP 99/56
[2019-02-08] MEDS: PIPERACILLIN/TAZ 2.25G PREMIX 50 ML IV SCH ×2 (00:53→09:37)
[2019-02-08] MEDS ORDERED: ACETAMINOPHEN 325MG TABLET PO PRN (01:00)
[2019-02-08 04:00] VITALS: BP 93/50
[2019-02-08] MEDS: LEVOTHYROXINE SODIUM 137MCG TABLET PO SCH (05:00)
[2019-02-08] MEDS: LACTULOSE 20G/30ML UDC PO SCH (05:00)
[2019-02-08] MEDS: SUCRALFATE 1 G/10 ML UDC PO SCH ×2 (05:00→13:07)
[2019-02-08] MEDS: INSULIN LISPRO 100 UNITS/ML SUBCUT SCH ×2 (07:16→12:50)
[2019-02-08] MEDS: BLOOD SUGAR DIAGNOSTIC STRIP TEST SCH ×2 (07:16→12:57)
[2019-02-08 08:03] VITALS: BP 102/41
[2019-02-08] MEDS: ZINC SULFATE 220 MG ( 50 ) CAPSULE PO SCH (09:37)
[2019-02-08] MEDS: ASCORBIC ACID 500 MG TABLET PO SCH (09:37)
[2019-02-08] MEDS: FAMOTIDINE 20MG TABLET PO SCH (09:37)
[2019-02-08] MEDS: DEXT 5%/0.45% NACL 1000ML 1,000 ML IV SCH (09:39)
[2019-02-08] MEDS ORDERED: METOCLOPRAMIDE HCL 10MG/2ML VIAL IV SCH (12:00)
[2019-02-08 12:28] VITALS: BP 81/46
[2019-02-08 15:28] VITALS: BP 81/46
[2019-02-08 16:53] VITALS: BP 101/47
== END 2019-02-08 17:52 | DRG 393 ==
LOC: ER 17:00 → 6WST 23:35 → ENRESERV 02-03 00:15 → ER 02-03 02:19 → CANBEDREQ 02-03 02:42
PROVIDERS: ADMIT Internal Medicine; ATTEND Internal Medicine
PROC: 0DH63UZ Insertion of Feeding Device into Stomach, Percutaneous Approach (ICD-10-PCS; principal; 2019-02-07)
DX: K62.89 Other specified diseases of anus and rectum (principal); N17.0 Acute kidney failure with tubular necrosis; E43 Unspecified severe protein-calorie malnutrition; K22.10 Ulcer of esophagus without bleeding; I50.32 Chronic diastolic (congestive) heart failure; I11.0 Hypertensive heart disease with heart failure; E87.5 Hyperkalemia; I48.91 Unspecified atrial fibrillation; D63.8 Anemia in other chronic diseases classified elsewhere; E03.9 Hypothyroidism, unspecified; Z68.25 Body mass index [BMI] 25.0-25.9, adult; F03.90 Unspecified dementia, unspecified severity, without behavioral disturbance, psychotic disturbance, mood disturbance, and anxiety; L85.3 Xerosis cutis; K31.9 Disease of stomach and duodenum, unspecified; L89.629 Pressure ulcer of left heel, unspecified stage; E66.9 Obesity, unspecified; E78.00 Pure hypercholesterolemia, unspecified; G62.9 Polyneuropathy, unspecified; L89.810 Pressure ulcer of head, unstageable; L89.150 Pressure ulcer of sacral region, unstageable; Z96.659 Presence of unspecified artificial knee joint; K29.70 Gastritis, unspecified, without bleeding; K44.9 Diaphragmatic hernia without obstruction or gangrene; K59.00 Constipation, unspecified; Z90.49 Acquired absence of other specified parts of digestive tract; Z88.0 Allergy status to penicillin; Z79.01 Long term (current) use of anticoagulants; Z79.899 Other long term (current) drug therapy; Z68.32 Body mass index [BMI] 32.0-32.9, adult
CPT/HCPCS: 36415; 74176; 80048; 80162; 82728; 82962; 83540; 83550; 84134; 84443; 84484; 93005; 96365; 96375; 99285; A6261; C1893; J2250; J2270; J2405; J2543; J2765; J3010; J3480; J3490; J7030; J7040; J7060

== ENCOUNTER 2019-02-14 15:49 | Inpatient (IN) | payer MEDICARE, MEDICAID ==
[~2019-02-14] VITALS: Ht 165.1 cm; Wt 108.9 kg
[~2019-02-14 15:49] MED LIST changes: +AMLO10TA4 MT; -ATOR10TA MT; -CLOT14.2 TP; -D-ME1TAB32 PO; -DIGO125T82 PO; -GABA-531 PO; +METO25TA6 MT; -[UNRECOGNIZED DRUG - CODE] PO
[2019-02-14] MEDS ORDERED: ONDANSETRON HCL 4MG/2ML INJ IV STA (19:13)
[2019-02-14 19:52] LABS: HEMATOCRIT. 21.5 % (36.0-48.0); MEAN CORPUSCULAR VOLUME 82.8 fL (81.0-99.0); MEAN PLATELET VOLUME 10.5 fl (7.4-10.4); PLATELET 137 x1000/uL (130-400); RED CELL DISTRIBUTION WIDTH 16.9 % (11.6-14.6)
[2019-02-14 19:58] LABS: CHLORIDE 102 mEq/L (98-107)
[2019-02-14 20:01] LABS: INR 1.1; PARTIAL THROMBOPLASTIN TIME 31.5 sec (23.4-31.0); PROTHROMBIN TIME 11.1 sec (9.1-11.1)
[2019-02-14 20:27] LABS: CLARITY URINE TURBID (CLEAR); COLOR URINE YELLOW (YELLOW); KETONES URINE TRACE (NEGATIVE); LEUKOCYTE ESTERASE URINE 3+ (NEGATIVE); NITRITE URINE NEGATIVE (NEGATIVE); OCCULT BLOOD URINE 3+ (NEGATIVE); PROTEIN URINE TRACE (NEGATIVE); SPECIFIC GRAVITY URINE 1.017 (1.005-1.030); UROBILINOGEN URINE 0.2 E.U./dL (0.2-1.0)
[2019-02-14 20:44] LABS: PLATELET ESTIMATE NORMAL
[2019-02-14] MEDS ORDERED: LEVOFLOXACIN 750MG PREMIX 150 ML IV ONE (20:45)
[2019-02-15] VITALS (39 sets, daily range): BP systolic 54–134; BP diastolic 28–86
[2019-02-15] MEDS ORDERED: DEXT 5%/0.45% NACL 1000ML 1,000 ML IV SCH (09:33)
[2019-02-15] MEDS ORDERED: ACETAMINOPHEN 650MG SUPP PR PRN (09:45)
[2019-02-15] MEDS ORDERED: ONDANSETRON HCL 4MG/2ML INJ IV PRN (09:45)
[2019-02-15] MEDS ORDERED: HYDROMORPHONE HCL/PF 2MG/ML CPJ IV PRN (09:45)
[2019-02-15] MEDS: INSULIN LISPRO 100 UNITS/ML SUBCUT SCH ×3 (12:40→21:00)
[2019-02-15] MEDS: BLOOD SUGAR DIAGNOSTIC STRIP TEST SCH ×3 (12:41→21:16)
[2019-02-15] MEDS: DEXTROSE 50% WATER 50ML SYRINGE IV PRN (12:49)
[2019-02-15 13:38] LABS: HEMATOCRIT 23.5 % (36.0-48.0); HEMOGLOBIN 7.8 g/dL (12.0-16.0)
[2019-02-15 13:53] LABS: TOTAL IRON BINDING CAPACITY 246 ug/dL (250-450)
[2019-02-15] MEDS: DEXT 5%/0.9% NACL 1,000 ML IV SCH ×2 (14:02→21:18)
[2019-02-15] MEDS ORDERED: ALBUMIN HUMAN 25GM/100ML (25%) IV SCH (15:00)
[2019-02-15] MEDS ORDERED: PHENYLEPHRINE 10 MG in DEXT 5% WATER 249 ML IV PRN (18:00)
[2019-02-15] MEDS: PHENYLEPHRINE 20 MG in DEXT 5% WATER 248 ML IV PRN (19:48)
[2019-02-15] MEDS ORDERED: VANCOMYCIN 1500MG in DEXTROSE 5% WATER 250ML IV NR (20:00)
[2019-02-15] MEDS ORDERED: NOREPINEPHRINE 16 MG in DEXT 5% WATER 484 ML IV PRN (20:30)
[2019-02-15 21:17] LABS: BASOPHILS % 0.3 % (0.0-2.0); EOSINOPHILS % 0.4 % (0.0-5.0); HEMATOCRIT. 27.5 % (36.0-48.0); HEMOGLOBIN. 8.9 g/dL (12.0-16.0); LYMPHOCYTES % 25.6 % (20.0-50.0); MEAN CORPUSCULAR HEMOGLOBIN 27.6 pg (28.0-32.0); MEAN CORPUSCULAR VOLUME 85.1 fL (81.0-99.0); MEAN PLATELET VOLUME 10.5 fl (7.4-10.4); MONOCYTES % 9.9 % (2.0-8.0); NEUTROPHILS % 63.8 % (40.0-76.0); PLATELET 162 x1000/uL (130-400); RED BLOOD CELL COUNT 3.23 mill/uL (4.2-5.4); RED CELL DISTRIBUTION WIDTH 16.1 % (11.6-14.6)
[2019-02-16] VITALS (102 sets, daily range): BP systolic 70–123; BP diastolic 30–91
[2019-02-16 06:26] LABS: BASOPHILS % 0.2 % (0.0-2.0); EOSINOPHILS % 0.4 % (0.0-5.0); HEMATOCRIT. 26.9 % (36.0-48.0); HEMOGLOBIN. 8.7 g/dL (12.0-16.0); LYMPHOCYTES % 21.9 % (20.0-50.0); MEAN CORPUSCULAR HEMOGLOBIN 28.1 pg (28.0-32.0); MEAN CORPUSCULAR VOLUME 86.7 fL (81.0-99.0); MONOCYTES % 12.2 % (2.0-8.0); NEUTROPHILS % 65.3 % (40.0-76.0); PLATELET 188 x1000/uL (130-400); RED CELL DISTRIBUTION WIDTH 16.6 % (11.6-14.6)
[2019-02-16 06:32] LABS: CHLORIDE 101 mEq/L (98-107)
[2019-02-16 06:39] LABS: PHOSPHORUS 1.8 mg/dL (2.5-4.9)
[2019-02-16 06:42] LABS: CREATINE KINASE 55 IU/L (26-192); T4 FREE 0.49 ng/dL (0.76-1.46)
[2019-02-16] MEDS: BLOOD SUGAR DIAGNOSTIC STRIP TEST SCH ×4 (07:50→21:54)
[2019-02-16] MEDS ORDERED: LIDOCAINE HCL 1% 20ML VIAL (Pyxis) INJ ONE (08:14)
[2019-02-16] MEDS: INSULIN LISPRO 100 UNITS/ML SUBCUT SCH ×4 (09:34→21:00)
[2019-02-16] MEDS: DEXT 5%/0.9% NACL 1,000 ML IV SCH ×2 (09:35→21:55)
[2019-02-16] MEDS: PHENYLEPHRINE 20 MG in DEXT 5% WATER 248 ML IV PRN (09:37)
[2019-02-16] MEDS: PHENYLEPHRINE 40 MG in DEXT 5% WATER 246 ML IV PRN ×3 (12:10→23:20)
[2019-02-16] MEDS ORDERED: LEVOFLOXACIN 250MG PREMIX 50 ML IV SCH ×2 (14:00→22:00)
[2019-02-16] MEDS ORDERED: ALBUMIN HUMAN 25GM/100ML (25%) IV NR (15:15)
[2019-02-16] MEDS: LEVOTHYROXINE SODIUM 100 MCG/ VIAL IV SCH (16:09)
[2019-02-16] MEDS ORDERED: SODIUM PHOS,M-BASIC-D-BASIC 30 MM in DEXT 5% WATER 500 ML IV NR (17:00)
[2019-02-16] MEDS: NOREPINEPHRINE 32 MG in DEXT 5% WATER 468 ML IV PRN (18:08)
[2019-02-16] MEDS: MEROPENEM 1,000 MG in SODIUM CHLORIDE 0.9% 100 ML IV SCH (18:10)
[2019-02-16] MEDS: IPRATROPIUM/ALBUTEROL 0.5-3(2.5)MG/3ML NEB HHN SCH (20:08)
[2019-02-17] VITALS (99 sets, daily range): BP systolic 80–111; BP diastolic 45–68
[2019-02-17] MEDS: IPRATROPIUM/ALBUTEROL 0.5-3(2.5)MG/3ML NEB HHN SCH ×4 (02:23→20:33)
[2019-02-17 06:04] LABS: BASOPHILS % 0.1 % (0.0-2.0); EOSINOPHILS % 0.1 % (0.0-5.0); HEMATOCRIT. 27.4 % (36.0-48.0); HEMOGLOBIN. 8.7 g/dL (12.0-16.0); LYMPHOCYTES % 25.1 % (20.0-50.0); MEAN CORPUSCULAR HEMOGLOBIN 27.9 pg (28.0-32.0); MEAN CORPUSCULAR VOLUME 87.4 fL (81.0-99.0); MEAN PLATELET VOLUME 9.7 fl (7.4-10.4); MONOCYTES % 12.1 % (2.0-8.0); NEUTROPHILS % 62.6 % (40.0-76.0); PLATELET 210 x1000/uL (130-400); RED BLOOD CELL COUNT 3.13 mill/uL (4.2-5.4); RED CELL DISTRIBUTION WIDTH 17.1 % (11.6-14.6)
[2019-02-17 06:09] LABS: CHLORIDE 98 mEq/L (98-107)
[2019-02-17 06:17] LABS: PHOSPHORUS 4.3 mg/dL (2.5-4.9)
[2019-02-17] MEDS: BLOOD SUGAR DIAGNOSTIC STRIP TEST SCH ×4 (07:50→21:32)
[2019-02-17 08:09] LABS: BG BASE EXCESS -12.9 mmol/L (-2.0-2.0); BG DEOXYHEMOGLOBIN 5.2 % (0.0-5.0); BG HCO3 ACT 15.5 mmol/L (22.0-26.0); BG METHEMOGLOBIN 0.1 % (0.0-1.5); BG OXYGEN SATURATION 94.8 % (92.0-98.5); BG OXYHEMOGLOBIN 94.7 % (94.0-97.0); BG PCO2 47.6 mmHg (35.0-45.0); BG PO2 93.8 mmHg (75.0-100.0); BG SAMPLE SITE RIGHT BRACHIAL; BG TOTAL HEMOGLOBIN 8.5 g/dL (12.0-18.0); BG VENT MODE NASAL CANNULA
[2019-02-17] MEDS: INSULIN LISPRO 100 UNITS/ML SUBCUT SCH ×4 (08:20→21:00)
[2019-02-17] MEDS ORDERED: SODIUM BICARBONATE 8.4% 1 MEQ/ML 50ML SYR IV SCH (08:45)
[2019-02-17 09:41] LABS: BG BASE EXCESS -8.9 mmol/L (-2.0-2.0); BG BILEVEL POS AIRWAY PRESSURE ST=15/5; BG CARBOXYHEMOGLOBIN 0.3 % (0.5-1.5); BG DEOXYHEMOGLOBIN 2.1 % (0.0-5.0); BG FRACTION INSPIRED OXYGEN 50; BG HCO3 ACT 17.5 mmol/L (22.0-26.0); BG METHEMOGLOBIN 0.3 % (0.0-1.5); BG OXYGEN SATURATION 97.9 % (92.0-98.5); BG OXYHEMOGLOBIN 97.3 % (94.0-97.0); BG PCO2 39.9 mmHg (35.0-45.0); BG PO2 121.5 mmHg (75.0-100.0); BG PRESSURE SUPPORT 10; BG SAMPLE SITE RIGHT RADIAL; BG TOTAL HEMOGLOBIN 8.3 g/dL (12.0-18.0); BG VENT MODE MASK - BIPAP; BG VENT RATE 15 set
[2019-02-17] MEDS: MEROPENEM 1,000 MG in SODIUM CHLORIDE 0.9% 100 ML IV SCH (09:51)
[2019-02-17] MEDS: LEVOTHYROXINE SODIUM 100 MCG/ VIAL IV SCH (11:48)
[2019-02-17] MEDS: PHENYLEPHRINE 40 MG in DEXT 5% WATER 246 ML IV PRN (11:54)
[2019-02-17] MEDS: DEXT 5%/0.9% NACL 1,000 ML IV SCH (12:34)
[2019-02-17] MEDS: NOREPINEPHRINE 32 MG in DEXT 5% WATER 468 ML IV PRN (13:39)
[2019-02-17 20:17] LABS: CLARITY URINE TURBID (CLEAR); COLOR URINE YELLOW (YELLOW); KETONES URINE NEGATIVE (NEGATIVE); LEUKOCYTE ESTERASE URINE 3+ (NEGATIVE); NITRITE URINE NEGATIVE (NEGATIVE); OCCULT BLOOD URINE 3+ (NEGATIVE); PH URINE 5.5 (4.5-8.0); PROTEIN URINE 1+ (NEGATIVE); SPECIFIC GRAVITY URINE 1.012 (1.005-1.030); UROBILINOGEN URINE 0.2 E.U./dL (0.2-1.0)
[2019-02-17] MEDS: NYSTATIN POWDER 15GM TOP SCH (21:32)
[2019-02-18] VITALS (95 sets, daily range): BP systolic 84–117; BP diastolic 44–71
[2019-02-18] MEDS: IPRATROPIUM/ALBUTEROL 0.5-3(2.5)MG/3ML NEB HHN SCH ×4 (01:17→20:26)
[2019-02-18] MEDS: DEXT 5%/0.9% NACL 1,000 ML IV SCH ×2 (05:48→23:37)
[2019-02-18] MEDS: PHENYLEPHRINE 40 MG in DEXT 5% WATER 246 ML IV PRN (05:48)
[2019-02-18 05:54] LABS: BASOPHILS % 0.2 % (0.0-2.0); EOSINOPHILS % 0.1 % (0.0-5.0); HEMATOCRIT. 25.1 % (36.0-48.0); HEMOGLOBIN. 8.3 g/dL (12.0-16.0); LYMPHOCYTES % 11.1 % (20.0-50.0); MEAN CORPUSCULAR HEMOGLOBIN 27.9 pg (28.0-32.0); MEAN CORPUSCULAR VOLUME 84.2 fL (81.0-99.0); MEAN PLATELET VOLUME 9.8 fl (7.4-10.4); MONOCYTES % 6.5 % (2.0-8.0); NEUTROPHILS % 82.1 % (40.0-76.0); PLATELET 202 x1000/uL (130-400); RED BLOOD CELL COUNT 2.98 mill/uL (4.2-5.4); RED CELL DISTRIBUTION WIDTH 16.2 % (11.6-14.6)
[2019-02-18 06:13] LABS: PHOSPHORUS 4.1 mg/dL (2.5-4.9)
[2019-02-18] MEDS: BLOOD SUGAR DIAGNOSTIC STRIP TEST SCH ×4 (07:50→21:26)
[2019-02-18 08:07] LABS: BG BASE EXCESS -5.6 mmol/L (-2.0-2.0); BG BILEVEL POS AIRWAY PRESSURE 15/5; BG CARBOXYHEMOGLOBIN 0.3 % (0.5-1.5); BG HCO3 ACT 18.2 mmol/L (22.0-26.0); BG METHEMOGLOBIN 0.1 % (0.0-1.5); BG OXYHEMOGLOBIN 98.6 % (94.0-97.0); BG PCO2 29.3 mmHg (35.0-45.0); BG PH 7.411 (7.350-7.450); BG PO2 207.7 mmHg (75.0-100.0); BG SAMPLE SITE RIGHT BRACHIAL; BG TOTAL HEMOGLOBIN 8.3 g/dL (12.0-18.0); BG VENT MODE MASK - BIPAP; BG VENT RATE 15 set
[2019-02-18] MEDS: MEROPENEM 1,000 MG in SODIUM CHLORIDE 0.9% 100 ML IV SCH (08:15)
[2019-02-18] MEDS: LEVOTHYROXINE SODIUM 100 MCG/ VIAL IV SCH (08:15)
[2019-02-18] MEDS: NYSTATIN POWDER 15GM TOP SCH ×2 (08:16→21:29)
[2019-02-18] MEDS: INSULIN LISPRO 100 UNITS/ML SUBCUT SCH ×4 (08:20→21:00)
[2019-02-18] MEDS: NOREPINEPHRINE 32 MG in DEXT 5% WATER 468 ML IV PRN (09:32)
[2019-02-19] VITALS (120 sets, daily range): BP systolic 42–129; BP diastolic 24–109
[2019-02-19] MEDS: IPRATROPIUM/ALBUTEROL 0.5-3(2.5)MG/3ML NEB HHN SCH ×4 (01:56→20:36)
[2019-02-19 06:01] LABS: BASOPHILS % 0.3 % (0.0-2.0); EOSINOPHILS % 0.5 % (0.0-5.0); HEMATOCRIT. 25.1 % (36.0-48.0); HEMOGLOBIN. 8.2 g/dL (12.0-16.0); LYMPHOCYTES % 17.6 % (20.0-50.0); MEAN CORPUSCULAR HEMOGLOBIN 27.8 pg (28.0-32.0); MEAN CORPUSCULAR VOLUME 84.9 fL (81.0-99.0); MEAN PLATELET VOLUME 9.9 fl (7.4-10.4); MONOCYTES % 8.6 % (2.0-8.0); PLATELET 197 x1000/uL (130-400); RED BLOOD CELL COUNT 2.95 mill/uL (4.2-5.4); RED CELL DISTRIBUTION WIDTH 16.9 % (11.6-14.6)
[2019-02-19 06:19] LABS: CHLORIDE 100 mEq/L (98-107)
[2019-02-19 06:31] LABS: PHOSPHORUS 4.1 mg/dL (2.5-4.9)
[2019-02-19] MEDS: INSULIN LISPRO 100 UNITS/ML SUBCUT SCH ×4 (08:20→21:00)
[2019-02-19] MEDS: BLOOD SUGAR DIAGNOSTIC STRIP TEST SCH ×4 (08:20→21:36)
[2019-02-19] MEDS: LEVOTHYROXINE SODIUM 100 MCG/ VIAL IV SCH (08:34)
[2019-02-19] MEDS: NYSTATIN POWDER 15GM TOP SCH ×2 (08:34→21:38)
[2019-02-19] MEDS: MEROPENEM 1,000 MG in SODIUM CHLORIDE 0.9% 100 ML IV SCH (08:34)
[2019-02-19 08:48] LABS: BG BASE EXCESS -4.8 mmol/L (-2.0-2.0); BG BILEVEL POS AIRWAY PRESSURE 18/5; BG CARBOXYHEMOGLOBIN 0.1 % (0.5-1.5); BG DEOXYHEMOGLOBIN 1.1 % (0.0-5.0); BG FRACTION INSPIRED OXYGEN 40; BG HCO3 ACT 19.2 mmol/L (22.0-26.0); BG METHEMOGLOBIN 0.3 % (0.0-1.5); BG OXYGEN SATURATION 98.9 % (92.0-98.5); BG OXYHEMOGLOBIN 98.5 % (94.0-97.0); BG PCO2 30.7 mmHg (35.0-45.0); BG PH 7.413 (7.350-7.450); BG PO2 180.7 mmHg (75.0-100.0); BG SAMPLE SITE RIGHT BRACHIAL; BG TOTAL HEMOGLOBIN 8.4 g/dL (12.0-18.0); BG VENT MODE MASK - BIPAP; BG VENT RATE 15 set
[2019-02-19] MEDS: NOREPINEPHRINE 32 MG in DEXT 5% WATER 468 ML IV PRN (09:46)
[2019-02-19] MEDS: PANTOPRAZOLE SODIUM 40 MG/VIAL IV SCH (09:55)
[2019-02-19] MEDS ORDERED: ALBUMIN HUMAN 25GM/100ML (25%) IV NR (12:45)
[2019-02-19] MEDS: DEXT 5%/0.9% NACL 1,000 ML IV SCH (14:09)
[2019-02-19] MEDS: MIDODRINE HCL 5MG TABLET PO SCH ×3 (14:09→18:17)
[2019-02-19] MEDS ORDERED: MAGNESIUM 1 G PREMIX 100 ML IV SCH (15:30)
[2019-02-19] MEDS: PHENYLEPHRINE 40 MG in DEXT 5% WATER 246 ML IV PRN ×2 (17:40→21:12)
[2019-02-19] MEDS: VASOPRESSIN 10 UNIT in SODIUM CHLORIDE 0.9% 99.5 ML IV PRN ×2 (17:47→23:33)
[2019-02-19] MEDS ORDERED: PROPOFOL 10MG/ML 100ML 100 ML IV PRN (19:45)
[2019-02-19 20:17] LABS: BG BASE EXCESS -9.3 mmol/L (-2.0-2.0); BG BILEVEL POS AIRWAY PRESSURE 15/5; BG CARBOXYHEMOGLOBIN 0.3 % (0.5-1.5); BG DEOXYHEMOGLOBIN 0.7 % (0.0-5.0); BG FRACTION INSPIRED OXYGEN 100; BG HCO3 ACT 15.4 mmol/L (22.0-26.0); BG METHEMOGLOBIN 0.3 % (0.0-1.5); BG OXYGEN SATURATION 99.3 % (92.0-98.5); BG OXYHEMOGLOBIN 98.7 % (94.0-97.0); BG PCO2 29.4 mmHg (35.0-45.0); BG PH 7.338 (7.350-7.450); BG PO2 353.4 mmHg (75.0-100.0); BG SAMPLE SITE RIGHT RADIAL; BG TOTAL HEMOGLOBIN 8.3 g/dL (12.0-18.0); BG VENT MODE MASK - BIPAP; BG VENT RATE 15 set
[2019-02-20] VITALS (119 sets, daily range): BP systolic 57–176; BP diastolic 38–109
[2019-02-20] MEDS: IPRATROPIUM/ALBUTEROL 0.5-3(2.5)MG/3ML NEB HHN SCH ×4 (01:17→20:14)
[2019-02-20] MEDS: PHENYLEPHRINE 80 MG in DEXT 5% WATER 492 ML IV PRN ×2 (01:22→08:23)
[2019-02-20] MEDS: VASOPRESSIN 10 UNIT in SODIUM CHLORIDE 0.9% 99.5 ML IV PRN (01:58)
[2019-02-20] MEDS: NOREPINEPHRINE 32 MG in DEXT 5% WATER 468 ML IV PRN (05:27)
[2019-02-20 05:53] LABS: HEMATOCRIT. 24.6 % (36.0-48.0); HEMOGLOBIN. 7.9 g/dL (12.0-16.0); MEAN CORPUSCULAR HEMOGLOBIN 27.7 pg (28.0-32.0); MEAN CORPUSCULAR VOLUME 86.2 fL (81.0-99.0); MEAN PLATELET VOLUME 9.6 fl (7.4-10.4); PLATELET 157 x1000/uL (130-400); RED BLOOD CELL COUNT 2.86 mill/uL (4.2-5.4); RED CELL DISTRIBUTION WIDTH 16.9 % (11.6-14.6)
[2019-02-20 06:02] LABS: CHLORIDE 98 mEq/L (98-107)
[2019-02-20 06:12] LABS: PHOSPHORUS 4.4 mg/dL (2.5-4.9)
[2019-02-20] MEDS: DEXT 5%/0.9% NACL 1,000 ML IV SCH (06:33)
[2019-02-20] MEDS: LEVOTHYROXINE SODIUM 100 MCG/ VIAL IV SCH ×2 (07:50→08:24)
[2019-02-20] MEDS: INSULIN LISPRO 100 UNITS/ML SUBCUT SCH ×3 (08:17→17:32)
[2019-02-20] MEDS: BLOOD SUGAR DIAGNOSTIC STRIP TEST SCH ×3 (08:17→17:32)
[2019-02-20] MEDS: MEROPENEM 1,000 MG in SODIUM CHLORIDE 0.9% 100 ML IV SCH (08:23)
[2019-02-20] MEDS: PANTOPRAZOLE SODIUM 40 MG/VIAL IV SCH (08:24)
[2019-02-20] MEDS: MIDODRINE HCL 5MG TABLET PO SCH (08:24)
[2019-02-20] MEDS: NYSTATIN POWDER 15GM TOP SCH ×2 (08:39→20:40)
[2019-02-20] MEDS ORDERED: PHENYLEPHRINE 80 MG in SODIUM CHLORIDE 0.9% 500 ML IV PRN (09:27)
[2019-02-20] MEDS ORDERED: ALBUMIN HUMAN 25GM/100ML (25%) IV NR (09:30)
[2019-02-20] MEDS ORDERED: FUROSEMIDE 20MG/2ML VIAL IVP NR (09:30)
[2019-02-20 10:20] LABS: BG BASE EXCESS -7.4 mmol/L (-2.0-2.0); BG CARBOXYHEMOGLOBIN 0.3 % (0.5-1.5); BG DEOXYHEMOGLOBIN 2.3 % (0.0-5.0); BG METHEMOGLOBIN 0.4 % (0.0-1.5); BG OXYGEN SATURATION 97.7 % (92.0-98.5); BG PCO2 35.9 mmHg (35.0-45.0); BG PH 7.318 (7.350-7.450); BG PO2 113.8 mmHg (75.0-100.0); BG SAMPLE SITE RIGHT RADIAL; BG TOTAL HEMOGLOBIN 8.3 g/dL (12.0-18.0); BG VENT MODE NASAL CANNULA
[2019-02-20] MEDS: CITRIC ACID/SODIUM CITRATE SOLN 30ML UDC NG SCH ×3 (10:25→16:14)
[2019-02-20 11:18] LABS: NUCLEATED RED BLOOD CELLS 1 /100 WBC; PLATELET ESTIMATE NORMAL
[2019-02-20] MEDS: ACETYLCYSTEINE 100MG/ML 10% VIAL 4ML INH SCH (13:28)
[2019-02-20] MEDS: MIDODRINE HCL 5MG TABLET NG SCH ×2 (13:46→16:14)
[2019-02-20] MEDS: FLUCONAZOLE 400MG/200ML BAG 200 ML IV SCH (13:46)
[2019-02-20] MEDS ORDERED: VANCOMYCIN 2,000 MG in DEXT 5% WATER 500 ML IV SCH (14:00)
[2019-02-20] MEDS ORDERED: LIDOCAINE HCL/PF 1% 2ML VIAL ONE (14:53)
[2019-02-20] MEDS: PHENYLEPHRINE 80 MG in SODIUM CHLORIDE 0.9% 492 ML IV PRN (17:59)
[2019-02-20] MEDS: NOREPINEPHRINE 32 MG in SODIUM CHLORIDE 0.9% 468 ML IV PRN (22:49)
[2019-02-21] VITALS (92 sets, daily range): BP systolic 97–128; BP diastolic 39–84
[2019-02-21] MEDS: BLOOD SUGAR DIAGNOSTIC STRIP TEST SCH ×4 (00:46→18:06)
[2019-02-21] MEDS: PHENYLEPHRINE 80 MG in SODIUM CHLORIDE 0.9% 492 ML IV PRN ×3 (01:15→15:32)
[2019-02-21] MEDS: IPRATROPIUM/ALBUTEROL 0.5-3(2.5)MG/3ML NEB HHN SCH ×3 (02:04→20:20)
[2019-02-21] MEDS: INSULIN LISPRO 100 UNITS/ML SUBCUT SCH ×4 (06:00→18:00)
[2019-02-21 06:51] LABS: BASOPHILS % 0.2 % (0.0-2.0); EOSINOPHILS % 0.1 % (0.0-5.0); HEMATOCRIT. 25.3 % (36.0-48.0); LYMPHOCYTES % 11.8 % (20.0-50.0); MEAN CORPUSCULAR HEMOGLOBIN 27.7 pg (28.0-32.0); MEAN CORPUSCULAR VOLUME 87.7 fL (81.0-99.0); MEAN PLATELET VOLUME 9.9 fl (7.4-10.4); MONOCYTES % 4.1 % (2.0-8.0); NEUTROPHILS % 83.8 % (40.0-76.0); PLATELET 139 x1000/uL (130-400); RED BLOOD CELL COUNT 2.88 mill/uL (4.2-5.4); RED CELL DISTRIBUTION WIDTH 17.4 % (11.6-14.6)
[2019-02-21] MEDS: DEXT 5%/0.9% NACL 1,000 ML IV SCH (07:25)
[2019-02-21] MEDS: LEVOTHYROXINE SODIUM 100 MCG/ VIAL IV SCH (07:26)
[2019-02-21 07:34] LABS: PHOSPHORUS 4.5 mg/dL (2.5-4.9)
[2019-02-21] MEDS: MEROPENEM 1,000 MG in SODIUM CHLORIDE 0.9% 100 ML IV SCH (08:22)
[2019-02-21] MEDS: CITRIC ACID/SODIUM CITRATE SOLN 30ML UDC NG SCH ×3 (08:23→15:23)
[2019-02-21] MEDS: PANTOPRAZOLE SODIUM 40 MG/VIAL IV SCH (08:23)
[2019-02-21] MEDS: NYSTATIN POWDER 15GM TOP SCH ×2 (08:23→21:22)
[2019-02-21] MEDS: MIDODRINE HCL 5MG TABLET NG SCH ×3 (08:23→15:23)
[2019-02-21] MEDS ORDERED: SODIUM BICARBONATE 150 MEQ in DEXTROSE 5% WATER 1,000 ML IV SCH (09:00)
[2019-02-21 09:17] LABS: BG BASE EXCESS -10.5 mmol/L (-2.0-2.0); BG BILEVEL POS AIRWAY PRESSURE ST=15/5; BG CARBOXYHEMOGLOBIN 0.4 % (0.5-1.5); BG DEOXYHEMOGLOBIN 1.4 % (0.0-5.0); BG FRACTION INSPIRED OXYGEN 40; BG HCO3 ACT 15.6 mmol/L (22.0-26.0); BG METHEMOGLOBIN 0.3 % (0.0-1.5); BG OXYGEN SATURATION 98.6 % (92.0-98.5); BG OXYHEMOGLOBIN 97.9 % (94.0-97.0); BG PCO2 35.1 mmHg (35.0-45.0); BG PH 7.265 (7.350-7.450); BG PO2 144.1 mmHg (75.0-100.0); BG SAMPLE SITE RIGHT RADIAL; BG TOTAL HEMOGLOBIN 7.6 g/dL (12.0-18.0); BG VENT MODE MASK - BIPAP; BG VENT RATE 16 set
[2019-02-21] MEDS ORDERED: BISACODYL 10MG SUPP PR PRN (11:30)
[2019-02-21] MEDS: FLUCONAZOLE 400MG/200ML BAG 200 ML IV SCH (12:57)
[2019-02-21] MEDS: ACETYLCYSTEINE 100MG/ML 10% VIAL 4ML INH SCH (15:28)
[2019-02-21] MEDS: NOREPINEPHRINE 32 MG in SODIUM CHLORIDE 0.9% 468 ML IV PRN (15:32)
[2019-02-21] MEDS: DEXTROSE 50% WATER 50ML SYRINGE IV PRN (17:33)
[2019-02-21] MEDS ORDERED: ALBUMIN HUMAN 25GM/100ML (25%) IV SCH (17:45)
[2019-02-22] VITALS (99 sets, daily range): BP systolic 41–137; BP diastolic 27–89
[2019-02-22] MEDS: PHENYLEPHRINE 80 MG in SODIUM CHLORIDE 0.9% 492 ML IV PRN ×3 (00:44→16:14)
[2019-02-22] MEDS: BLOOD SUGAR DIAGNOSTIC STRIP TEST SCH ×4 (00:48→17:35)
[2019-02-22] MEDS: IPRATROPIUM/ALBUTEROL 0.5-3(2.5)MG/3ML NEB HHN SCH ×4 (02:20→20:47)
[2019-02-22] MEDS: ACETYLCYSTEINE 100MG/ML 10% VIAL 4ML INH SCH ×3 (02:20→14:49)
[2019-02-22 05:30] LABS: BASOPHILS % 0.1 % (0.0-2.0); HEMATOCRIT. 23.5 % (36.0-48.0); HEMOGLOBIN. 7.8 g/dL (12.0-16.0); LYMPHOCYTES % 8.3 % (20.0-50.0); MEAN CORPUSCULAR HEMOGLOBIN 27.8 pg (28.0-32.0); MEAN CORPUSCULAR VOLUME 83.2 fL (81.0-99.0); MEAN PLATELET VOLUME 9.7 fl (7.4-10.4); MONOCYTES % 5.3 % (2.0-8.0); NEUTROPHILS % 86.3 % (40.0-76.0); PLATELET 123 x1000/uL (130-400); RED BLOOD CELL COUNT 2.82 mill/uL (4.2-5.4)
[2019-02-22 05:35] LABS: PHOSPHORUS 3.7 mg/dL (2.5-4.9)
[2019-02-22 05:51] LABS: INR 1.7
[2019-02-22] MEDS: INSULIN LISPRO 100 UNITS/ML SUBCUT SCH ×4 (06:00→17:36)
[2019-02-22] MEDS: SODIUM BICARBONATE 150 MEQ in DEXTROSE 5% WATER 1,000 ML IV SCH (06:37)
[2019-02-22] MEDS: PANTOPRAZOLE SODIUM 40 MG/VIAL IV SCH (08:01)
[2019-02-22] MEDS: LEVOTHYROXINE SODIUM 100 MCG/ VIAL IV SCH (08:02)
[2019-02-22] MEDS: MEROPENEM 1,000 MG in SODIUM CHLORIDE 0.9% 100 ML IV SCH (08:02)
[2019-02-22] MEDS: CITRIC ACID/SODIUM CITRATE SOLN 30ML UDC NG SCH ×3 (09:00→16:58)
[2019-02-22] MEDS ORDERED: SODIUM BICARBONATE 4% (2.4MEQ) 5ML VIAL IV ONE (09:27)
[2019-02-22] MEDS: NYSTATIN POWDER 15GM TOP SCH ×2 (09:28→21:14)
[2019-02-22] MEDS ORDERED: KCL 20MEQ/100ML PREMIX 100 ML IV NR (10:00)
[2019-02-22] MEDS ORDERED: SODIUM BICARBONATE 7.5% 0.9 MEQ/ML 50ML SYR IV ONE (10:20)
[2019-02-22] MEDS ORDERED: AMIODARONE HCL 50MG/ML 3ML VIAL IV ONE (10:20)
[2019-02-22] MEDS ORDERED: LIDOCAINE HCL 2% 5ML SYRINGE IV ONE (10:20)
[2019-02-22] MEDS ORDERED: EPINEPHRINE 0.1MG/ML (1:10,000) 10ML SYR ONE (10:20)
[2019-02-22] MEDS ORDERED: CALCIUM CHLORIDE 1GM/10ML SYR IV ONE (10:20)
[2019-02-22] MEDS ORDERED: DEXTROSE 50% WATER 50ML SYRINGE IV ONE (10:20)
[2019-02-22 11:37] LABS: BG BASE EXCESS -7.6 mmol/L (-2.0-2.0); BG DEOXYHEMOGLOBIN 1.1 % (0.0-5.0); BG FRACTION INSPIRED OXYGEN 100; BG HCO3 ACT 16.8 mmol/L (22.0-26.0); BG METHEMOGLOBIN 0.7 % (0.0-1.5); BG OXYGEN SATURATION 98.9 % (92.0-98.5); BG OXYHEMOGLOBIN 97.2 % (94.0-97.0); BG PCO2 28.7 mmHg (35.0-45.0); BG PH 7.385 (7.350-7.450); BG SAMPLE SITE RIGHT BRACHIAL; BG TIDAL VOLUME(mL) 550 mL; BG TOTAL HEMOGLOBIN 5.1 g/dL (12.0-18.0); BG VENT MODE VENT - A/C; BG VENT RATE 20 set
[2019-02-22 11:39] LABS: BASOPHILS % 0.1 % (0.0-2.0); EOSINOPHILS % 0.6 % (0.0-5.0); LYMPHOCYTES % 12.6 % (20.0-50.0); MEAN CORPUSCULAR HEMOGLOBIN 27.3 pg (28.0-32.0); MEAN CORPUSCULAR VOLUME 85.4 fL (81.0-99.0); MEAN PLATELET VOLUME 9.7 fl (7.4-10.4); MONOCYTES % 3.5 % (2.0-8.0); NEUTROPHILS % 83.2 % (40.0-76.0); PLATELET 99 x1000/uL (130-400); RED BLOOD CELL COUNT 2.28 mill/uL (4.2-5.4); RED CELL DISTRIBUTION WIDTH 16.8 % (11.6-14.6)
[2019-02-22 11:42] LABS: HEMOGLOBIN. 6.2 g/dL (12.0-16.0)
[2019-02-22 11:43] LABS: CHLORIDE 104 mEq/L (98-107); HEMATOCRIT. 19.5 % (36.0-48.0)
[2019-02-22] MEDS: DEXTROSE 50% WATER 50ML SYRINGE IV PRN ×3 (12:42→23:46)
[2019-02-22] MEDS: MIDODRINE HCL 5MG TABLET NG SCH ×2 (13:00→16:58)
[2019-02-22] MEDS: VASOPRESSIN 10 UNIT in SODIUM CHLORIDE 0.9% 99.5 ML IV PRN ×2 (13:54→19:49)
[2019-02-22] MEDS: NOREPINEPHRINE 32 MG in SODIUM CHLORIDE 0.9% 468 ML IV PRN (13:55)
[2019-02-22] MEDS: FLUCONAZOLE 400MG/200ML BAG 200 ML IV SCH (16:43)
[2019-02-23] VITALS (91 sets, daily range): BP systolic 93–135; BP diastolic 43–93
[2019-02-23] MEDS: VASOPRESSIN 10 UNIT in SODIUM CHLORIDE 0.9% 99.5 ML IV PRN ×5 (00:27→22:19)
[2019-02-23] MEDS: BLOOD SUGAR DIAGNOSTIC STRIP TEST SCH ×4 (00:33→18:00)
[2019-02-23] MEDS: ACETYLCYSTEINE 100MG/ML 10% VIAL 4ML INH SCH ×4 (01:01→20:35)
[2019-02-23] MEDS: IPRATROPIUM/ALBUTEROL 0.5-3(2.5)MG/3ML NEB HHN SCH ×4 (01:01→20:35)
[2019-02-23] MEDS: PHENYLEPHRINE 80 MG in SODIUM CHLORIDE 0.9% 492 ML IV PRN ×2 (01:54→13:57)
[2019-02-23 04:52] LABS: HEMATOCRIT. 28.7 % (36.0-48.0); HEMOGLOBIN. 8.5 g/dL (12.0-16.0); MEAN CORPUSCULAR HEMOGLOBIN 27.6 pg (28.0-32.0); MEAN CORPUSCULAR VOLUME 92.8 fL (81.0-99.0); PLATELET 89 x1000/uL (130-400); RED BLOOD CELL COUNT 3.09 mill/uL (4.2-5.4)
[2019-02-23 05:01] LABS: PHOSPHORUS 4.9 mg/dL (2.5-4.9)
[2019-02-23] MEDS: INSULIN LISPRO 100 UNITS/ML SUBCUT SCH ×4 (05:53→18:00)
[2019-02-23] MEDS: DEXTROSE 50% WATER 50ML SYRINGE IV PRN ×3 (05:53→08:01)
[2019-02-23] MEDS: NOREPINEPHRINE 32 MG in SODIUM CHLORIDE 0.9% 468 ML IV PRN (07:39)
[2019-02-23 07:44] LABS: BG BASE EXCESS -18.6 mmol/L (-2.0-2.0); BG CARBOXYHEMOGLOBIN 0.8 % (0.5-1.5); BG DEOXYHEMOGLOBIN 0.6 % (0.0-5.0); BG FRACTION INSPIRED OXYGEN 100; BG HCO3 ACT 7.7 mmol/L (22.0-26.0); BG METHEMOGLOBIN 0.8 % (0.0-1.5); BG OXYGEN SATURATION 99.4 % (92.0-98.5); BG OXYHEMOGLOBIN 97.8 % (94.0-97.0); BG PCO2 20.2 mmHg (35.0-45.0); BG PO2 444.6 mmHg (75.0-100.0); BG SAMPLE SITE RIGHT RADIAL; BG TIDAL VOLUME(mL) 550 mL; BG TOTAL HEMOGLOBIN 6.5 g/dL (12.0-18.0); BG VENT MODE VENT - A/C; BG VENT RATE 20 set
[2019-02-23] MEDS ORDERED: SODIUM BICARBONATE 8.4% 1 MEQ/ML 50ML SYR IV NR ×2 (08:15→09:30)
[2019-02-23] MEDS: MIDODRINE HCL 5MG TABLET NG SCH ×3 (08:53→16:29)
[2019-02-23] MEDS: PANTOPRAZOLE SODIUM 40 MG/VIAL IV SCH (08:53)
[2019-02-23] MEDS: CITRIC ACID/SODIUM CITRATE SOLN 30ML UDC NG SCH ×3 (08:53→16:28)
[2019-02-23] MEDS: MEROPENEM 1,000 MG in SODIUM CHLORIDE 0.9% 100 ML IV SCH (08:53)
[2019-02-23] MEDS: NYSTATIN POWDER 15GM TOP SCH ×2 (08:54→21:45)
[2019-02-23 10:16] LABS: PLATELET ESTIMATE DECREASED
[2019-02-23 12:01] LABS: BG BASE EXCESS -15.1 mmol/L (-2.0-2.0); BG DEOXYHEMOGLOBIN 1.5 % (0.0-5.0); BG FRACTION INSPIRED OXYGEN 40; BG HCO3 ACT 9.2 mmol/L (22.0-26.0); BG METHEMOGLOBIN 0.4 % (0.0-1.5); BG OXYGEN SATURATION 98.5 % (92.0-98.5); BG OXYHEMOGLOBIN 98.1 % (94.0-97.0); BG PCO2 17.7 mmHg (35.0-45.0); BG PH 7.335 (7.350-7.450); BG PO2 161.7 mmHg (75.0-100.0); BG SAMPLE SITE RIGHT RADIAL; BG TIDAL VOLUME(mL) 550 mL; BG TOTAL HEMOGLOBIN 7.1 g/dL (12.0-18.0); BG VENT MODE VENT - A/C; BG VENT RATE 26 set
[2019-02-23] MEDS ORDERED: AMIKACIN SULFATE 250 MG in SODIUM CHLORIDE 0.9% 50 ML IV NR (16:00)
[2019-02-23] MEDS: LEVOTHYROXINE SODIUM 100 MCG/ VIAL IV SCH (16:27)
[2019-02-23] MEDS: FLUCONAZOLE 400MG/200ML BAG 200 ML IV SCH (16:28)
[2019-02-24] VITALS (114 sets, daily range): BP systolic 74–140; BP diastolic 44–87
[2019-02-24] MEDS: NOREPINEPHRINE 32 MG in SODIUM CHLORIDE 0.9% 468 ML IV PRN ×2 (00:22→15:55)
[2019-02-24] MEDS: DEXTROSE 50% WATER 50ML SYRINGE IV PRN ×9 (01:39→23:32)
[2019-02-24] MEDS: IPRATROPIUM/ALBUTEROL 0.5-3(2.5)MG/3ML NEB HHN SCH ×3 (02:00→21:06)
[2019-02-24] MEDS: VASOPRESSIN 10 UNIT in SODIUM CHLORIDE 0.9% 99.5 ML IV PRN ×5 (02:57→20:32)
[2019-02-24] MEDS: PHENYLEPHRINE 80 MG in SODIUM CHLORIDE 0.9% 492 ML IV PRN ×3 (02:57→23:28)
[2019-02-24] MEDS: SODIUM BICARBONATE 150 MEQ in DEXTROSE 5% WATER 1,000 ML IV SCH (02:58)
[2019-02-24] MEDS: INSULIN LISPRO 100 UNITS/ML SUBCUT SCH ×5 (06:00→23:28)
[2019-02-24] MEDS: BLOOD SUGAR DIAGNOSTIC STRIP TEST SCH ×5 (06:20→23:28)
[2019-02-24] MEDS ORDERED: MEROPENEM 1,000 MG in SODIUM CHLORIDE 0.9% 100 ML IV SCH ×4 (09:00)
[2019-02-24] MEDS: PANTOPRAZOLE SODIUM 40 MG/VIAL IV SCH (09:08)
[2019-02-24] MEDS: CITRIC ACID/SODIUM CITRATE SOLN 30ML UDC NG SCH ×3 (09:08→16:14)
[2019-02-24] MEDS: LEVOTHYROXINE SODIUM 100 MCG/ VIAL IV SCH (09:09)
[2019-02-24] MEDS: MIDODRINE HCL 5MG TABLET NG SCH ×3 (09:09→16:15)
[2019-02-24] MEDS: NYSTATIN POWDER 15GM TOP SCH ×2 (09:13→21:23)
[2019-02-24 09:15] LABS: BG BASE EXCESS -17.5 mmol/L (-2.0-2.0); BG CARBOXYHEMOGLOBIN 1.6 % (0.5-1.5); BG DEOXYHEMOGLOBIN 1.9 % (0.0-5.0); BG FRACTION INSPIRED OXYGEN 40; BG HCO3 ACT 7.9 mmol/L (22.0-26.0); BG METHEMOGLOBIN 0.3 % (0.0-1.5); BG OXYGEN SATURATION 98.1 % (92.0-98.5); BG OXYHEMOGLOBIN 96.2 % (94.0-97.0); BG PCO2 17.3 mmHg (35.0-45.0); BG PH 7.277 (7.350-7.450); BG PO2 135.8 mmHg (75.0-100.0); BG SAMPLE SITE LEFT RADIAL; BG TIDAL VOLUME(mL) 550 mL; BG TOTAL HEMOGLOBIN 4.5 g/dL (12.0-18.0); BG VENT MODE VENT - A/C; BG VENT RATE 26 set
[2019-02-24 10:09] LABS: BASOPHILS % 0.2 % (0.0-2.0); EOSINOPHILS % 1.4 % (0.0-5.0); LYMPHOCYTES % 7.9 % (20.0-50.0); MEAN CORPUSCULAR HEMOGLOBIN 27.3 pg (28.0-32.0); MEAN PLATELET VOLUME 9.8 fl (7.4-10.4); MONOCYTES % 1.1 % (2.0-8.0); NEUTROPHILS % 89.4 % (40.0-76.0); PLATELET 57 x1000/uL (130-400); RED BLOOD CELL COUNT 2.06 mill/uL (4.2-5.4); RED CELL DISTRIBUTION WIDTH 17.6 % (11.6-14.6)
[2019-02-24 10:29] LABS: HEMOGLOBIN. 5.6 g/dL (12.0-16.0)
[2019-02-24 10:30] LABS: HEMATOCRIT. 17.6 % (36.0-48.0)
[2019-02-24 10:32] LABS: MEAN CORPUSCULAR VOLUME 85.4 fL (81.0-99.0)
[2019-02-24] MEDS ORDERED: DEXTROSE 10% WATER 500 ML IV ONE (11:15)
[2019-02-24] MEDS: IPRATROPIUM/ALBUTEROL 0.5-3(2.5)MG/3ML NEB HHN PRN ×2 (12:34→16:30)
[2019-02-24] MEDS ORDERED: FLUCONAZOLE 400MG/200ML BAG 200 ML IV SCH (14:00)
[2019-02-24] MEDS: ACETYLCYSTEINE 100MG/ML 10% VIAL 4ML INH SCH (14:45)
[2019-02-24] MEDS ORDERED: DOPAMINE 400MG/250ML PREMIX 250 ML IV PRN (19:00)
[2019-02-24] MEDS: DOPAMINE 400MG/250ML PREMIX 250 ML IV PRN ×2 (22:08→23:38)
[2019-02-25] VITALS: BP 76/49
[2019-02-25 00:15] VITALS: BP 57/32
[2019-02-25] MEDS: IPRATROPIUM/ALBUTEROL 0.5-3(2.5)MG/3ML NEB HHN SCH (00:21)
[2019-02-25] MEDS: ACETYLCYSTEINE 100MG/ML 10% VIAL 4ML INH SCH (00:21)
[2019-02-25 00:30] VITALS: BP 55/28
[2019-02-25 01:03] VITALS: BP 54/39
== END 2019-02-25 01:18 | disposition expired | DRG 871 ==
LOC: ER 15:49 → 8WST 19:26 → EDBEDREQ 20:35 → EDBEDREQSVC 20:35 → EDBEDREQTM 20:35 → ENRESERV 02-15 07:35 → CVICU 02-15 16:56
PROVIDERS: ADMIT Internal Medicine; ATTEND Internal Medicine
PROC: 30233N1 Transfusion of Nonautologous Red Blood Cells into Peripheral Vein, Percutaneous Approach (ICD-10-PCS; 2019-02-15)
PROC: 02HV33Z Insertion of Infusion Device into Superior Vena Cava, Percutaneous Approach (ICD-10-PCS; 2019-02-16)
PROC: B548ZZA Ultrasonography of Superior Vena Cava, Guidance (ICD-10-PCS; 2019-02-16)
PROC: 5A09357 Assistance with Respiratory Ventilation, Less than 24 Consecutive Hours, Continuous Positive Airway Pressure (ICD-10-PCS; 2019-02-17)
PROC: 5A09357 Assistance with Respiratory Ventilation, Less than 24 Consecutive Hours, Continuous Positive Airway Pressure (ICD-10-PCS; 2019-02-18)
PROC: 5A09357 Assistance with Respiratory Ventilation, Less than 24 Consecutive Hours, Continuous Positive Airway Pressure (ICD-10-PCS; 2019-02-19)
PROC: 5A09357 Assistance with Respiratory Ventilation, Less than 24 Consecutive Hours, Continuous Positive Airway Pressure (ICD-10-PCS; 2019-02-20)
PROC: 5A09357 Assistance with Respiratory Ventilation, Less than 24 Consecutive Hours, Continuous Positive Airway Pressure (ICD-10-PCS; 2019-02-21)
PROC: 5A1945Z Respiratory Ventilation, 24-96 Consecutive Hours (ICD-10-PCS; principal; 2019-02-22)
PROC: 0BH17EZ Insertion of Endotracheal Airway into Trachea, Via Natural or Artificial Opening (ICD-10-PCS; 2019-02-22)
PROC: 5A12012 Performance of Cardiac Output, Single, Manual (ICD-10-PCS; 2019-02-22)
PROC: 5A2204Z Restoration of Cardiac Rhythm, Single (ICD-10-PCS; 2019-02-22)
PROC: 5A09357 Assistance with Respiratory Ventilation, Less than 24 Consecutive Hours, Continuous Positive Airway Pressure (ICD-10-PCS; 2019-02-22)
PROC: 30233K1 Transfusion of Nonautologous Frozen Plasma into Peripheral Vein, Percutaneous Approach (ICD-10-PCS; 2019-02-22)
DX: A41.59 Other Gram-negative sepsis (principal); E43 Unspecified severe protein-calorie malnutrition; R65.21 Severe sepsis with septic shock; J96.00 Acute respiratory failure, unspecified whether with hypoxia or hypercapnia; I50.43 Acute on chronic combined systolic (congestive) and diastolic (congestive) heart failure; N17.0 Acute kidney failure with tubular necrosis; J18.9 Pneumonia, unspecified organism; K94.23 Gastrostomy malfunction; N17.9 Acute kidney failure, unspecified; E87.2 Acidosis; D68.59 Other primary thrombophilia; L03.311 Cellulitis of abdominal wall; E87.1 Hypo-osmolality and hyponatremia; I13.0 Hypertensive heart and chronic kidney disease with heart failure and stage 1 through stage 4 chronic kidney disease, or unspecified chronic kidney disease; K94.22 Gastrostomy infection; L02.211 Cutaneous abscess of abdominal wall; B37.49 Other urogenital candidiasis; G93.1 Anoxic brain damage, not elsewhere classified; Z66 Do not resuscitate; I46.9 Cardiac arrest, cause unspecified; N18.9 Chronic kidney disease, unspecified; K29.60 Other gastritis without bleeding; D63.1 Anemia in chronic kidney disease; E03.9 Hypothyroidism, unspecified; E78.5 Hyperlipidemia, unspecified; K44.9 Diaphragmatic hernia without obstruction or gangrene; L89.629 Pressure ulcer of left heel, unspecified stage; B96.1 Klebsiella pneumoniae [K. pneumoniae] as the cause of diseases classified elsewhere; I25.5 Ischemic cardiomyopathy; E11.22 Type 2 diabetes mellitus with diabetic chronic kidney disease; E11.51 Type 2 diabetes mellitus with diabetic peripheral angiopathy without gangrene; D69.2 Other nonthrombocytopenic purpura; F03.90 Unspecified dementia, unspecified severity, without behavioral disturbance, psychotic disturbance, mood disturbance, and anxiety; I27.20 Pulmonary hypertension, unspecified; Z96.659 Presence of unspecified artificial knee joint; I48.2 Chronic atrial fibrillation; R13.10 Dysphagia, unspecified; R62.7 Adult failure to thrive; Z16.12 Extended spectrum beta lactamase (ESBL) resistance; Z68.39 Body mass index [BMI] 39.0-39.9, adult; Z86.73 Personal history of transient ischemic attack (TIA), and cerebral infarction without residual deficits; Z87.11 Personal history of peptic ulcer disease; Z79.899 Other long term (current) drug therapy; Z82.49 Family history of ischemic heart disease and other diseases of the circulatory system; Z83.3 Family history of diabetes mellitus; Z88.0 Allergy status to penicillin
CPT/HCPCS: 36415; 36569; 36600; 71045; 74176; 76604; 76770; 76937; 80048; 82375; 82550; 82805; 82947; 82962; 83540; 83550; 83605; 83735; 83880; 83935; 84100; 84134; 84439; 84443; 84478; 84484; 85014; 85018; 86850; 86900; 86920; 86927; 87070; 87077; 87106; 87186; 93005; 93306; 93970; 93971; 94003; 94640; 94660; 96365; 99285; A6261; C1725; C9113; J0278; J0282; J1170; J1265; J1450; J1815; J1940; J1956; J2185; J2370; J2405; J3370; J3475; J3480; J3490; J7040; J7042; J7050; J7060; J7070; J7608; J7620; P9016; P9017; P9047